=== PATIENT | male | born 1995 | race Caucasian/White ===

== ENCOUNTER 2016-10-16 21:37 | Emergency (ER) | payer MEDICAID, OTHER, SELFPAY ==
[2016-10-16] MEDS ORDERED: ONDANSETRON 4MG/2ML VIAL (J2405) As Ordered ONE (22:32)
[2016-10-16] MEDS ORDERED: KETOROLAC 30 MG/ML VIAL (J1885) As Ordered ONE (22:32)
[2016-10-16 22:55] LABS: MEAN CORPUSCULAR HEMOGLOBIN 31.8 pg (27.0-33.0); MEAN CORPUSCULAR HGB CONC 34.2 g/dl (32.0-36.5); MEAN CORPUSCULAR VOLUME 93.1 fl (80.0-96.0); PLATELET COUNT, AUTOMATED 249 k/mm3 (150-450); RED CELL DISTRIBUTION WIDTH 11.9 % (11.5-14.5); WHITE BLOOD COUNT 15.2 K/mm3 (4.0-10.0)
[2016-10-16 23:13] LABS: ALBUMIN 4.2 GM/DL (3.2-5.2); ALBUMIN/GLOBULIN RATIO 1.56 (1.00-1.93); ALKALINE PHOSPHATASE 80 U/L (45-117); ALT/SGPT 14 U/L (12-78); AMYLASE 72 U/L (25-115); ANION GAP 10 MEQ/L (8-16); AST/SGOT 9 U/L (15-37); BILIRUBIN,DIRECT 0.4 MG/DL (0.0-0.2); BILIRUBIN,TOTAL 1.4 MG/DL (0.2-1.0); BLOOD UREA NITROGEN 15 MG/DL (7-18); CALCIUM LEVEL 8.8 MG/DL (8.5-10.1); CARBON DIOXIDE LEVEL 27 MEQ/L (21-32); CHLORIDE LEVEL 107 MEQ/L (98-107); CREATININE FOR GFR 1.02 MG/DL (0.70-1.30); GLOMERULAR FILTRATION RATE > 60.0 (>60); GLUCOSE, FASTING 93 MG/DL (70-105); POTASSIUM SERUM 4.6 MEQ/L (3.5-5.1); SODIUM LEVEL 144 MEQ/L (136-145); TOTAL PROTEIN 6.9 GM/DL (6.4-8.2)
[2016-10-16 23:46] LABS: EOSINOPHILS 1 % (0-5)
[2016-10-16 23:52] LABS: AMPHETAMINES LEVEL URINE NEGATIVE (NEGATIVE)
[2016-10-16 23:53] LABS: BENZODIAZEPINES URINE NEGATIVE (NEGATIVE); COCAINE METABOLITE URINE NEGATIVE (NEGATIVE); CONTROL LINE INT CTR LINE PRESENT; METHADONE URINE NEGATIVE (NEGATIVE); OPIATES URINE NEGATIVE (NEGATIVE); TRICYCLIC ANTIDEPRESS URINE NEGATIVE (NEGATIVE)
[2016-10-17] MEDS ORDERED: IBUPROFEN 600 MG TAB As Ordered ONE (02:18)
--- NOTE | 2016-10-17 02:31 | EDDOCDS ---
Nurse's Notes [facility] Name: Prasanna Walls Age: 21 yrs Sex: Male : 1995 Arrival Date: 10/16/2016 Time: 21:37 Bed 14 Private MD: Diagnosis: Nausea and vomiting;Fever, unspecified Presentation: 10/16 21:40 Presenting complaint: EMS states: N/V/D starting at approx 20:00. pt was feeling weak mlc and unable to leave bathroom. Adult Sepsis Screening: The patient does not have new or worsening altered mentation. Patient's respiratory rate is less than 22. Systolic blood pressure is greater than 100. Patient has a qSOFA score of 0- Negative Sepsis Screen. Suicide/Homicide risk assessment- the patient denies having any suicidal and/or homicidal ideations and does not present with any other emotional, behavioral or mental health complaints. Status: Patient is not a service assistant or dependent. Transition of care: patient was not received from another setting of care. Care prior to arrival: Medications administered prior to arrival: 4 mg zofran IV initiated. 21:40 Acuity: JACKELINE Level 3 mlc 21:40 Method Of Arrival: Ambulance mlc Triage Assessment: 21:43 General: Appears ill, Behavior is cooperative. Pain: Location: headache, right lower mlc quad Pain currently is 3 out of 10 on a pain scale. HIV screening NA for this visit Offered previously. The patient is triaged at the bedside. See Assessment in Nurses Notes section of ED record. Neurological: Level of Consciousness is awake, alert, Oriented to person, place, time. Respiratory: Airway is patent Respiratory effort is even, unlabored, Respiratory pattern is regular. GI: Reports diarrhea, nausea, vomiting. Derm: Skin is pale. Historical: - Allergies: No known drug Allergies; - Home Meds: 1. none - PMHx: Anxiety; - PSHx: hypospadis at 1 1/2 years old; - Social history: Smoking status: Patient uses tobacco products, current every day smoker. No barriers to communication noted, The patient speaks fluent Mongolian. - Family history: Not pertinent, No immediate family members are acutely ill. - : The pt / caregiver states he / she is not on anticoagulants. Home medication list is obtained from the patient. - Exposure Risk Screening:: None identified. Screenin:44 Screening information is obtained from the patient. Fall risk: No risks identified. mlc Assistance ADL's: requires no assistance with activities of daily living. Abuse/DV Screen: The patient / caregiver reports he/she is: not in a situation that causes fear, pain or injury. Nutritional screening: No deficits noted. Advance Directives: Currently, there is no health care proxy. home support is adequate. Assessment: 22:30 General: Appears uncomfortable, Behavior is anxious, cooperative. Pain: Location: right js15 lower quadrant Pain currently is 9 out of 10 on a pain scale. Neurological: Level of Consciousness is awake, alert, obeys commands, Oriented to person, place, time. Respiratory: Airway is patent Respiratory effort is even, unlabored, Respiratory pattern is regular, symmetrical, Breath sounds are clear bilaterally. GI: Abdomen is non- distended Bowel sounds present X 4 quads. Abd is tender to palpation in right lower quadrant and left lower quadrant. Derm: Skin is pink, warm & dry. 23:30 Reassessment: Patient appears in no apparent distress at this time. Pt resting on js15 stretcher with family at bedside; respirations even and unlabored; skin pink, warm, dry. 10/17 00:30 Reassessment: Patient appears in no apparent distress at this time. Pt requesting oral js15 fluids; given small amount of water to sip on after approval from ED physician; respirations even and unlabored; skin pink, warm, dry. 01:21 General: Appears in no apparent distress, Behavior is appropriate for age, cooperative, js15 Reports fatigue for. Neurological: Level of Consciousness is awake, alert, obeys commands, Oriented to person, place, time. Respiratory: Airway is patent Respiratory effort is even, unlabored, Respiratory pattern is regular, symmetrical. Derm: Skin is dry, Skin is pink, Skin temperature is hot. 02:28 Reassessment: Patient appears in no apparent distress at this time. Patient states js15 feeling better. Patient states symptoms have improved. Pt resting on stretcher with family at bedside; respirations even and unlabored; skin pink, warm, dry. Vital Signs: 10/16 21:44 BP 122 / 72 RA Sitting (auto/reg); Pulse 88 MON; Resp 18 S; Temp 99.3(O); Pulse Ox 100% cln on R/A; Weight 61.23 kg (R); Height 5 ft. 11 in. (180.34 cm) (R); Pain 3/10; 10/17 01:14 BP 123 / 55 (auto/); js15 01:15 Pulse 94 MON; Pulse Ox 94% ; js15 01:17 Temp 101.7(TE); js15 02:14 BP 113 / 59 (auto/); js15 02:16 Pulse 90 MON; Resp 20; Temp 101.7(TE); Pulse Ox 95% on R/A; js15 10/16 21:44 Body Mass Index 18.83 (61.23 kg, 180.34 cm) cln Vitals: 10/16 21:43 Log In Time N/A - ambulance arrival. [facility] [place] ED Course: 21:38 Patient visited by La Arrington, Maintainer [employer]. ml3 21:38 Radha Thurston,GARRY is Primary Nurse. ml3 21:38 Patient moved to Waiting ml3 21:38 Patient moved to 14 ml3 21:43 Triage Initiated mlc 21:44 Patient visited by Pinky Wilkerson PCA. cln 21:45 Maintain field IV. Dressing intact. Gauge & site: 20g right AC. mlc 22:01 Elijah Christiansen DO is Attending Physician. mm11 22:01 Patient visited by Elijah Christiansen DO. mm11 22:18 Patient visited by Elijah Christiansen DO. mm11 22:44 Amylase Sent. js15 22:44 Basic Metabolic Profile Sent. js15 22:44 CBC with Diff Sent. js15 22:44 Lipase Sent. js15 22:44 Liver Profile Sent. js15 22:57 Drug Eval Toxicology ED Only Sent. cln 22:57 Urinalysis Sent. cln 22:57 Urine Culture Sent. cln 23:26 Patient name changed from Prasanna\S\R\S\Walls\S\ to Prasanna\S\Nicholas\S\Walls. EDMS 23:28 Patient visited by Lorena Tanner,GARRY. js15 23:28 DIFFERENTIAL NO CHARGE Sent. js15 23:40 [facility] Payment Agreement was scanned into [employer] and attached to record. pm4 10/17 00:00 The patient / caregiver is instructed regarding the plan of care and ED course. js15 00:37 Patient visited by Lorena Tanner RN. js15 00:54 Primary Nurse role handed off by Radha Thurston RN kailey 01:19 Patient visited by Elijah Christiansen DO. mm11 02:12 Referral List is Referral Physician. mm11 02:29 Discontinued IV lock intact, bleeding controlled, pressure dressing applied, No js15 redness/swelling at site. No procedures done that require assistance. Administered Medications: 10/16 22:44 Drug: NS 0.9% 1000 ml [sodium chloride 0.9 % intravenous solution] Route: IV; Rate: js15 bolus; Site: left antecubital; 10/17 00:30 Follow up: IV Status: Completed infusion; IV Intake: 1000ml 15 10/16 22:44 Drug: Ondansetron 4 mg [ondansetron HCl 2 mg/mL intravenous solution (2 mL)] Route: js15 IVP; Site: left antecubital; 22:44 Drug: ketorolac 30 mg [ketorolac 30 mg/mL (1 mL) injection solution (1 mL)] Route: IVP; 15 Site: left antecubital; 10/17 02:27 Drug: Ibuprofen 600 mg [ibuprofen 600 mg tablet (1 tabs)] Route: PO; 15 Intake: 00:30 IV: 1000.00ml; Total: 1000.00ml. 15 Order Results: Lab Order: Amylase; SPEC'M 10/16/16 22:41 Test: AMYLASE; Value: 72; Range: 25-115; Units: U/L; Status: F Lab Order: Basic Metabolic Profile; SPEC'M 10/16/16 22:41 Test: GLUCOSE, FASTING; Value: 93; Range: 70-105; Units: MG/DL; Status: F Test: BLOOD UREA NITROGEN; Value: 15; Range: 7-18; Units: MG/DL; Status: F Test: CREATININE FOR GFR; Value: 1.02; Range: 0.70-1.30; Units: MG/DL; Status: F Test: GLOMERULAR FILTRATION RATE; Value: > 60.0; Range: >60; Status: F Test: SODIUM LEVEL; Value: 144; Range: 136-145; Units: MEQ/L; Status: F Test: POTASSIUM SERUM; Value: 4.6; Range: 3.5-5.1; Units: MEQ/L; Status: F Test: CHLORIDE LEVEL; Value: 107; Range: 98-107; Units: MEQ/L; Status: F Test: CARBON DIOXIDE LEVEL; Value: 27; Range: 21-32; Units: MEQ/L; Status: F Test: ANION GAP; Value: 10; Range: 8-16; Units: MEQ/L; Status: F Test: CALCIUM LEVEL; Value: 8.8; Range: 8.5-10.1; Units: MG/DL; Status: F Test Note: ; Units are mL/min/1.73 m2 Chronic Kidney Disease Staging per NKF: Stage I & II GFR >=60 Normal to Mildly Decreased Stage III GFR 30-59 Moderately Decreased Stage IV GFR 15-29 Severely Decreased Stage V GFR <15 Very Little GFR Left ESRD GFR <15 on CEO NA Lab Order: CBC with Diff; SPEC'M 10/16/16 22:41 Test: WHITE BLOOD COUNT; Value: 15.2; Range: 4.0-10.0; Abnormal: Above high normal; Units: K/mm3; Status: F Test: RED BLOOD COUNT; Value: 5.50; Range: 4.30-6.10; Units: M/mm3; Status: F Test: HEMOGLOBIN; Value: 17.5; Range: 14.0-18.0; Units: g/dl; Status: F Test: HEMATOCRIT; Value: 51.2; Range: 42.0-52.0; Units: %; Status: F Test: MEAN CORPUSCULAR VOLUME; Value: 93.1; Range: 80.0-96.0; Units: fl; Status: F Test: MEAN CORPUSCULAR HEMOGLOBIN; Value: 31.8; Range: 27.0-33.0; Units: pg; Status: F Test: MEAN CORPUSCULAR HGB CONC; Value: 34.2; Range: 32.0-36.5; Units: g/dl; Status: F Test: RED CELL DISTRIBUTION WIDTH; Value: 11.9; Range: 11.5-14.5; Units: %; Status: F Test: PLATELET COUNT, AUTOMATED; Value: 249; Range: 150-450; Units: k/mm3; Status: F Test: NEUTROPHILS; Value: 90; Range: 35-75; Abnormal: Above high normal; Units: %; Status: F Test: LYMPHOCYTES; Value: 6; Range: 16-52; Abnormal: Below low normal; Units: %; Status: F Test: MONOCYTES; Value: 3; Range: 0-8; Units: %; Status: F Test: EOSINOPHILS; Value: 1; Range: 0-5; Units: %; Status: F Lab Order: Lipase; [facility] 10/16/16 22:41 Test: LIPASE; Value: 187; Range: 73-393; Units: U/L; Status: F Lab Order: Liver Profile; [facility] 10/16/16 22:41 Test: AST/SGOT; Value: 9; Range: 15-37; Abnormal: Below low normal; Units: U/L; Status: F Test: ALT/SGPT; Value: 14; Range: 12-78; Units: U/L; Status: F Test: ALKALINE PHOSPHATASE; Value: 80; Range: 45-117; Units: U/L; Status: F Test: BILIRUBIN,TOTAL; Value: 1.4; Range: 0.2-1.0; Abnormal: Above high normal; Units: MG/DL; Status: F Test: BILIRUBIN,DIRECT; Value: 0.4; Range: 0.0-0.2; Abnormal: Above high normal; Units: MG/DL; Status: F Test: TOTAL PROTEIN; Value: 6.9; Range: 6.4-8.2; Units: GM/DL; Status: F Test: ALBUMIN; Value: 4.2; Range: 3.2-5.2; Units: GM/DL; Status: F Test: ALBUMIN/GLOBULIN RATIO; Value: 1.56; Range: 1.00-1.93; Status: F Lab Order: Urinalysis; [facility] 10/16/16 23:16 Test: APPEARANCE, URINE; Value: HAZY; Range: CLEAR; Status: F Test: COLOR, URINE; Value: YELLOW; Range: YELLOW; Status: F Test: PH,URINE; Value: 5.0; Range: 5.0-9.0; Units: UNITS; Status: F Test: SPECIFIC GRAVITY URINE AUTO; Value: 1.021; Range: 1.002-1.035; Status: F Test: PROTEIN, URINE AUTO; Value: NEGATIVE; Range: NEGATIVE; Units: mg/dL; Status: F Test: GLUCOSE, URINE (UA) AUTO; Value: NEGATIVE; Range: NEGATIVE; Units: mg/dL; Status: F Test: KETONE, URINE AUTO; Value: TRACE; Range: NEGATIVE; Abnormal: Above high normal; Units: mg/dL; Status: F Test: UROBILINOGEN, URINE AUTO; Value: 0.2; Range: 0.0-2.0; Units: mg/dL; Status: F Test: BILIRUBIN, URINE AUTO; Value: NEGATIVE; Range: NEGATIVE; Status: F Test: NITRITE, URINE AUTO; Value: NEGATIVE; Range: NEGATIVE; Status: F Test: LEUKOCYTE ESTERASE, URINE AUTO; Value: NEGATIVE; Range: NEGATIVE; Status: F Test: BLOOD, URINE BLOOD; Value: NEGATIVE; Range: NEGATIVE; Status: F Test: WBC, URINE AUTO; Value: 3; Range: 0-3; Units: /HPF; Status: F Test: RBC, URINE AUTO; Value: 0; Range: 0-3; Units: /HPF; Status: F Test: BACTERIA, URINE AUTO; Value: NEGATIVE; Range: NEGATIVE; Status: F Test: SQUAMOUS EPITHELIAL CELL UR AU; Value: 0; Range: 0-6; Units: /HPF; Status: F Test: MUCUS, URINE; Value: MODERATE; Range: NEGATIVE; Status: F Test: HYALINE CAST, URINE AUTO; Value: 0; Range: 0-1; Units: /LPF; Status: F Lab Order: Drug Eval Toxicology ED Only; SPEC'M 10/16/16 23:16 Test: AMPHETAMINES LEVEL URINE; Value: NEGATIVE; Range: NEGATIVE; Status: F Test: BARBITURATES URINE; Value: NEGATIVE; Range: NEGATIVE; Status: F Test: BENZODIAZEPINES URINE; Value: NEGATIVE; Range: NEGATIVE; Status: F Test: CANNABINOIDS URINE; Value: NEGATIVE; Range: NEGATIVE; Status: F Test: COCAINE METABOLITE URINE; Value: NEGATIVE; Range: NEGATIVE; Status: F Test: METHADONE URINE; Value: NEGATIVE; Range: NEGATIVE; Status: F Test: OPIATES URINE; Value: NEGATIVE; Range: NEGATIVE; Status: F Test: TRICYCLIC ANTIDEPRESS URINE; Value: NEGATIVE; Range: NEGATIVE; Status: F Test Note: ; ALL PRESUMPTIVE POSITIVE FINDINGS ARE UNCONFIRMED NORMAL VALUES THRESHOLD IN NG/ML AMPHETAMINES 1000 METHAMPHETAMINES 1000 BARBITURATES 300 BENZODIAZEPINES 300 CANNABINOIDS (THC) 50 COCAINE METABOLITE 300 METHADONE 300 OPIATES 300 PHENCYCLIDINE 25 TRICYCLIC ANTIDEPRESSANTS 1000 RESULTS ARE FOR MEDICAL PURPOSES ONLY. ALL URINE SPECIMENS WILL BE SAVED FOR 3 DAYS. IF CONFIRMATION OF A PRESUMPTIVE POSTIVE SCREEN RESULT IS DESIRED, CALL CHEMISTRY ([phone]) AND REQUEST URINE TO BE SENT TO REFERENCE LAB. FOR A LIST OF CLOSELY RELATED COMPOUNDS PLEASE CALL THE LAB. Lab Order: PLATELET ESTIMATE; SPEC'M 10/16/16 22:41 Test: PLATELET ESTIMATE; Value: NORMAL; Range: NORMAL; Status: F Outcome: 02:12 Discharge ordered by Provider. mm11 02:29 Discharge Assessment: Patient awake, alert and oriented x 3. No cognitive and/or js15 functional deficits noted. Patient verbalized understanding of disposition instructions. patient administered narcotics - no. The following High Risk Discharge criteria are identified: None. Discharged to home ambulatory, with family, with significant other. Condition: improved. Discharge instructions given to patient, Instructed on discharge instructions, follow up and referral plans. medication usage, diet, Demonstrated understanding of instructions, medications, Pt was receptive of discharge instructions/ teaching. Prescriptions given X 1. No special radiology studies were completed. Property sent home with patient. 02:30 Patient left the ED. js15 Signatures: Dispatcher [employer] EDMS La Arrington, Maintainer [employer] ml3 Elijah Christiansen, DO mm11 Es Guzman, REMOTE SENSING ADVISOR REMOTE SENSING ADVISOR Cha Corey,RN RN Lorena Harmon RN RN js15 Pinky Wilkerson, REMOTE SENSING ADVISOR REMOTE SENSING ADVISOR suzannen Soham Morocho, Reg Reg pm4 MTDD
--- NOTE | 2016-10-17 02:31 | EDDOCDS ---
Physician Documentation [facility] Name: Prasanna Walls Age: 21 yrs Sex: Male : 1995 Arrival Date: 10/16/2016 Time: 21:37 Bed 14 Private MD: Disposition: 10/17/16 02:12 Discharged to Home/Self Care. Impression: Nausea and vomiting, Fever, unspecified. - Condition is Stable. - Discharge Instructions: Abdominal Pain, Adult, Fever, Adult, Nausea and Vomiting, Viral Gastroenteritis. - Prescriptions for Zofran 4 mg Oral Tablet - take 1 tablet by ORAL route 4 times per day As needed; 10 tablet. - Medication Reconciliation, Local Pharmacy Hours, Family Work Release, Work Release Form - 1 day, Referral List Call for Appointment form. - Follow up: Referral List; When: Call to arrange an appointment; Reason: Continuance of care. - Problem is an acute exacerbation. - Symptoms have improved. Historical: - Allergies: No known drug Allergies; - Home Meds: 1. none - PMHx: Anxiety; - PSHx: hypospadis at 1 1/2 years old; - Social history: Smoking status: Patient uses tobacco products, current every day smoker. No barriers to communication noted, The patient speaks fluent Guyanese. - Family history: Not pertinent, No immediate family members are acutely ill. - : The pt / caregiver states he / she is not on anticoagulants. Home medication list is obtained from the patient. - Exposure Risk Screening:: None identified. Vital Signs: 10/16 21:44 BP 122 / 72 RA Sitting (auto/reg); Pulse 88 MON; Resp 18 S; Temp 99.3(O); Pulse Ox 100% cln on R/A; Weight 61.23 kg / 134.99 lbs (R); Height 5 ft. 11 in. (180.34 cm) (R); Pain 3/10; 10/17 01:14 BP 123 / 55 (auto/); 01:15 Pulse 94 MON; Pulse Ox 94% ; 01:17 Temp 101.7(TE); 02:14 BP 113 / 59 (auto/); 02:16 Pulse 90 MON; Resp 20; Temp 101.7(TE); Pulse Ox 95% on R/A; 10/16 21:44 Body Mass Index 18.83 (61.23 kg, 180.34 cm) cln MDM: 10/16 22:19 NS 0.9% 1000 ml IV at bolus once ordered. mm11 22:19 Ondansetron 4 mg IVP once ordered. mm11 22:19 ketorolac 30 mg IVP once ordered. mm11 22:19 IV Saline Lock ordered. mm11 22:19 Undress patient appropriately for examination ordered. mm11 22:21 Amylase Ordered. EDMS 22:21 Basic Metabolic Profile Ordered. EDMS 22:21 CBC with Diff Ordered. EDMS 22:21 Lipase Ordered. EDMS 22:21 Liver Profile Ordered. EDMS 22:21 Urinalysis Ordered. EDMS 22:21 Urine Culture Ordered. EDMS 22:21 Drug Eval Toxicology ED Only Ordered. EDMS 22:21 NOTHING BY MOUTH+DIET ordered. EDMS 22:57 DIFFERENTIAL NO CHARGE Ordered. EDMS 22:57 PLATELET ESTIMATE Ordered. EDMS 23:18 Financial registration complete. pm4 23:40 [facility] Payment Agreement was scanned into [employer] and attached to record. pm4 23:51 CBC with Diff Reviewed. mm11 23:51 Liver Profile Reviewed. mm11 23:51 Amylase Reviewed. mm11 23:51 Basic Metabolic Profile Reviewed. mm11 23:51 Lipase Reviewed. mm11 23:51 PLATELET ESTIMATE Reviewed. mm11 10/17 00:40 Urinalysis Reviewed. mm11 00:40 Drug Eval Toxicology ED Only Reviewed. mm11 02:18 Ibuprofen 600 mg PO once ordered. mm11 Administered Medications: 10/16 22:44 Drug: NS 0.9% 1000 ml [sodium chloride 0.9 % intravenous solution] Route: IV; Rate: js15 bolus; Site: left antecubital; 10/17 00:30 Follow up: IV Status: Completed infusion; IV Intake: 1000ml 15 10/16 22:44 Drug: Ondansetron 4 mg [ondansetron HCl 2 mg/mL intravenous solution (2 mL)] Route: js15 IVP; Site: left antecubital; 22:44 Drug: ketorolac 30 mg [ketorolac 30 mg/mL (1 mL) injection solution (1 mL)] Route: IVP; js15 Site: left antecubital; 10/17 02:27 Drug: Ibuprofen 600 mg [ibuprofen 600 mg tablet (1 tabs)] Route: PO; js15 Signatures: Dispatcher [employer] Elijah Abbott, DO mm11 Cha GloriaRN RN mlc Lorena Tanner RN RN js15 Soham Morocho, Reg Reg pm4 The chart was reviewed and I authenticate all verbal orders and agree with the evaluation and treatment provided.Attachments: 10/16 23:40 [facility] Payment Agreement pm4 MTDD
[2016-10-18] MEDS ORDERED: METAL LOCK LOOP XX ONE (11:15)
--- NOTE | 2016-10-19 03:31 | EDDOCDS ---
Nurse's Notes [facility] Name: Prasanna Walls Age: 21 yrs Sex: Male : 1995 Arrival Date: 10/16/2016 Time: 21:37 Bed 14 Private MD: Diagnosis: Nausea and vomiting;Fever, unspecified Presentation: 10/16 21:40 Presenting complaint: EMS states: N/V/D starting at approx 20:00. pt was feeling weak mlc and unable to leave bathroom. Adult Sepsis Screening: The patient does not have new or worsening altered mentation. Patient's respiratory rate is less than 22. Systolic blood pressure is greater than 100. Patient has a qSOFA score of 0- Negative Sepsis Screen. Suicide/Homicide risk assessment- the patient denies having any suicidal and/or homicidal ideations and does not present with any other emotional, behavioral or mental health complaints. Status: Patient is not a managed services consultant or dependent. Transition of care: patient was not received from another setting of care. Care prior to arrival: Medications administered prior to arrival: 4 mg zofran IV initiated. 21:40 Acuity: JACKELINE Level 3 mlc 21:40 Method Of Arrival: Ambulance mlc Triage Assessment: 21:43 General: Appears ill, Behavior is cooperative. Pain: Location: headache, right lower mlc quad Pain currently is 3 out of 10 on a pain scale. HIV screening NA for this visit Offered previously. The patient is triaged at the bedside. See Assessment in Nurses Notes section of ED record. Neurological: Level of Consciousness is awake, alert, Oriented to person, place, time. Respiratory: Airway is patent Respiratory effort is even, unlabored, Respiratory pattern is regular. GI: Reports diarrhea, nausea, vomiting. Derm: Skin is pale. Historical: - Allergies: No known drug Allergies; - Home Meds: 1. none - PMHx: Anxiety; - PSHx: hypospadis at 1 1/2 years old; - Social history: Smoking status: Patient uses tobacco products, current every day smoker. No barriers to communication noted, The patient speaks fluent Danish. - Family history: Not pertinent, No immediate family members are acutely ill. - : The pt / caregiver states he / she is not on anticoagulants. Home medication list is obtained from the patient. - Exposure Risk Screening:: None identified. Screenin:44 Screening information is obtained from the patient. Fall risk: No risks identified. mlc Assistance ADL's: requires no assistance with activities of daily living. Abuse/DV Screen: The patient / caregiver reports he/she is: not in a situation that causes fear, pain or injury. Nutritional screening: No deficits noted. Advance Directives: Currently, there is no health care proxy. home support is adequate. Assessment: 22:30 General: Appears uncomfortable, Behavior is anxious, cooperative. Pain: Location: right js15 lower quadrant Pain currently is 9 out of 10 on a pain scale. Neurological: Level of Consciousness is awake, alert, obeys commands, Oriented to person, place, time. Respiratory: Airway is patent Respiratory effort is even, unlabored, Respiratory pattern is regular, symmetrical, Breath sounds are clear bilaterally. GI: Abdomen is non- distended Bowel sounds present X 4 quads. Abd is tender to palpation in right lower quadrant and left lower quadrant. Derm: Skin is pink, warm & dry. 23:30 Reassessment: Patient appears in no apparent distress at this time. Pt resting on js15 stretcher with family at bedside; respirations even and unlabored; skin pink, warm, dry. 10/17 00:30 Reassessment: Patient appears in no apparent distress at this time. Pt requesting oral js15 fluids; given small amount of water to sip on after approval from ED physician; respirations even and unlabored; skin pink, warm, dry. 01:21 General: Appears in no apparent distress, Behavior is appropriate for age, cooperative, js15 Reports fatigue for. Neurological: Level of Consciousness is awake, alert, obeys commands, Oriented to person, place, time. Respiratory: Airway is patent Respiratory effort is even, unlabored, Respiratory pattern is regular, symmetrical. Derm: Skin is dry, Skin is pink, Skin temperature is hot. 02:28 Reassessment: Patient appears in no apparent distress at this time. Patient states js15 feeling better. Patient states symptoms have improved. Pt resting on stretcher with family at bedside; respirations even and unlabored; skin pink, warm, dry. Vital Signs: 10/16 21:44 BP 122 / 72 RA Sitting (auto/reg); Pulse 88 MON; Resp 18 S; Temp 99.3(O); Pulse Ox 100% cln on R/A; Weight 61.23 kg (R); Height 5 ft. 11 in. (180.34 cm) (R); Pain 3/10; 10/17 01:14 BP 123 / 55 (auto/); js15 01:15 Pulse 94 MON; Pulse Ox 94% ; js15 01:17 Temp 101.7(TE); js15 02:14 BP 113 / 59 (auto/); js15 02:16 Pulse 90 MON; Resp 20; Temp 101.7(TE); Pulse Ox 95% on R/A; js15 10/16 21:44 Body Mass Index 18.83 (61.23 kg, 180.34 cm) cln Vitals: 10/16 21:43 Log In Time N/A - ambulance arrival. [facility] [place] Course: 21:38 Patient visited by La Arrington, [employer] Professional. ml3 21:38 Radha Thurston,GARRY is Primary Nurse. ml3 21:38 Patient moved to Waiting ml3 21:38 Patient moved to 14 ml3 21:43 Triage Initiated mlc 21:44 Patient visited by Pinky Wilkerson PCA. cln 21:45 Maintain field IV. Dressing intact. Gauge & site: 20g right AC. mlc 22:01 Elijah Christiansen DO is Attending Physician. mm11 22:01 Patient visited by Elijah Christiansen DO. mm11 22:18 Patient visited by Elijah Christiansen DO. mm11 22:44 Amylase Sent. js15 22:44 Basic Metabolic Profile Sent. js15 22:44 CBC with Diff Sent. js15 22:44 Lipase Sent. js15 22:44 Liver Profile Sent. js15 22:57 Drug Eval Toxicology ED Only Sent. cln 22:57 Urinalysis Sent. cln 22:57 Urine Culture Sent. cln 23:26 Patient name changed from Prasanna\S\R\S\Walls\S\ to Prasanna\S\Nicholas\S\Walls. EDMS 23:28 Patient visited by Lorena Tanner,GARRY. js15 23:28 DIFFERENTIAL NO CHARGE Sent. js15 23:40 [facility] Payment Agreement was scanned into [email or web address] and attached to record. pm4 10/17 00:00 The patient / caregiver is instructed regarding the plan of care and ED course. js15 00:37 Patient visited by Lorena Tanner RN. js15 00:54 Primary Nurse role handed off by Radha Thurston RN kailey 01:19 Patient visited by Elijah Christiansen DO. mm11 02:12 Referral List is Referral Physician. mm11 02:29 Discontinued IV lock intact, bleeding controlled, pressure dressing applied, No js15 redness/swelling at site. No procedures done that require assistance. 08:56 T-Sheet-- Draft Copy was scanned into [email or web address] and attached to record. jp5 10/18 10:53 PCR was scanned into [email or web address] and attached to record. gb Administered Medications: 10/16 22:44 Drug: NS 0.9% 1000 ml [sodium chloride 0.9 % intravenous solution] Route: IV; Rate: js15 bolus; Site: left antecubital; 10/17 00:30 Follow up: IV Status: Completed infusion; IV Intake: 1000ml js15 10/16 22:44 Drug: Ondansetron 4 mg [ondansetron HCl 2 mg/mL intravenous solution (2 mL)] Route: js15 IVP; Site: left antecubital; 22:44 Drug: ketorolac 30 mg [ketorolac 30 mg/mL (1 mL) injection solution (1 mL)] Route: IVP; js15 Site: left antecubital; 10/17 02:27 Drug: Ibuprofen 600 mg [ibuprofen 600 mg tablet (1 tabs)] Route: PO; js15 Intake: 00:30 IV: 1000.00ml; Total: 1000.00ml. js15 Order Results: Lab Order: Amylase; SPEC'M 10/16/16 22:41 Test: AMYLASE; Value: 72; Range: 25-115; Units: U/L; Status: F Lab Order: Basic Metabolic Profile; SPEC'M 10/16/16 22:41 Test: GLUCOSE, FASTING; Value: 93; Range: 70-105; Units: MG/DL; Status: F Test: BLOOD UREA NITROGEN; Value: 15; Range: 7-18; Units: MG/DL; Status: F Test: CREATININE FOR GFR; Value: 1.02; Range: 0.70-1.30; Units: MG/DL; Status: F Test: GLOMERULAR FILTRATION RATE; Value: > 60.0; Range: >60; Status: F Test: SODIUM LEVEL; Value: 144; Range: 136-145; Units: MEQ/L; Status: F Test: POTASSIUM SERUM; Value: 4.6; Range: 3.5-5.1; Units: MEQ/L; Status: F Test: CHLORIDE LEVEL; Value: 107; Range: 98-107; Units: MEQ/L; Status: F Test: CARBON DIOXIDE LEVEL; Value: 27; Range: 21-32; Units: MEQ/L; Status: F Test: ANION GAP; Value: 10; Range: 8-16; Units: MEQ/L; Status: F Test: CALCIUM LEVEL; Value: 8.8; Range: 8.5-10.1; Units: MG/DL; Status: F Test Note: ; Units are mL/min/1.73 m2 Chronic Kidney Disease Staging per NKF: Stage I & II GFR >=60 Normal to Mildly Decreased Stage III GFR 30-59 Moderately Decreased Stage IV GFR 15-29 Severely Decreased Stage V GFR <15 Very Little GFR Left ESRD GFR <15 on [employer]ERK Lab Order: CBC with Diff; SPEC'M 10/16/16 22:41 Test: WHITE BLOOD COUNT; Value: 15.2; Range: 4.0-10.0; Abnormal: Above high normal; Units: K/mm3; Status: F Test: RED BLOOD COUNT; Value: 5.50; Range: 4.30-6.10; Units: M/mm3; Status: F Test: HEMOGLOBIN; Value: 17.5; Range: 14.0-18.0; Units: g/dl; Status: F Test: HEMATOCRIT; Value: 51.2; Range: 42.0-52.0; Units: %; Status: F Test: MEAN CORPUSCULAR VOLUME; Value: 93.1; Range: 80.0-96.0; Units: fl; Status: F Test: MEAN CORPUSCULAR HEMOGLOBIN; Value: 31.8; Range: 27.0-33.0; Units: pg; Status: F Test: MEAN CORPUSCULAR HGB CONC; Value: 34.2; Range: 32.0-36.5; Units: g/dl; Status: F Test: RED CELL DISTRIBUTION WIDTH; Value: 11.9; Range: 11.5-14.5; Units: %; Status: F Test: PLATELET COUNT, AUTOMATED; Value: 249; Range: 150-450; Units: k/mm3; Status: F Test: NEUTROPHILS; Value: 90; Range: 35-75; Abnormal: Above high normal; Units: %; Status: F Test: LYMPHOCYTES; Value: 6; Range: 16-52; Abnormal: Below low normal; Units: %; Status: F Test: MONOCYTES; Value: 3; Range: 0-8; Units: %; Status: F Test: EOSINOPHILS; Value: 1; Range: 0-5; Units: %; Status: F Lab Order: Lipase; [facility] 10/16/16 22:41 Test: LIPASE; Value: 187; Range: 73-393; Units: U/L; Status: F Lab Order: Liver Profile; [facility] 10/16/16 22:41 Test: AST/SGOT; Value: 9; Range: 15-37; Abnormal: Below low normal; Units: U/L; Status: F Test: ALT/SGPT; Value: 14; Range: 12-78; Units: U/L; Status: F Test: ALKALINE PHOSPHATASE; Value: 80; Range: 45-117; Units: U/L; Status: F Test: BILIRUBIN,TOTAL; Value: 1.4; Range: 0.2-1.0; Abnormal: Above high normal; Units: MG/DL; Status: F Test: BILIRUBIN,DIRECT; Value: 0.4; Range: 0.0-0.2; Abnormal: Above high normal; Units: MG/DL; Status: F Test: TOTAL PROTEIN; Value: 6.9; Range: 6.4-8.2; Units: GM/DL; Status: F Test: ALBUMIN; Value: 4.2; Range: 3.2-5.2; Units: GM/DL; Status: F Test: ALBUMIN/GLOBULIN RATIO; Value: 1.56; Range: 1.00-1.93; Status: F Lab Order: Urinalysis; [facility] 10/16/16 23:16 Test: APPEARANCE, URINE; Value: HAZY; Range: CLEAR; Status: F Test: COLOR, URINE; Value: YELLOW; Range: YELLOW; Status: F Test: PH,URINE; Value: 5.0; Range: 5.0-9.0; Units: UNITS; Status: F Test: SPECIFIC GRAVITY URINE AUTO; Value: 1.021; Range: 1.002-1.035; Status: F Test: PROTEIN, URINE AUTO; Value: NEGATIVE; Range: NEGATIVE; Units: mg/dL; Status: F Test: GLUCOSE, URINE (UA) AUTO; Value: NEGATIVE; Range: NEGATIVE; Units: mg/dL; Status: F Test: KETONE, URINE AUTO; Value: TRACE; Range: NEGATIVE; Abnormal: Above high normal; Units: mg/dL; Status: F Test: UROBILINOGEN, URINE AUTO; Value: 0.2; Range: 0.0-2.0; Units: mg/dL; Status: F Test: BILIRUBIN, URINE AUTO; Value: NEGATIVE; Range: NEGATIVE; Status: F Test: NITRITE, URINE AUTO; Value: NEGATIVE; Range: NEGATIVE; Status: F Test: LEUKOCYTE ESTERASE, URINE AUTO; Value: NEGATIVE; Range: NEGATIVE; Status: F Test: BLOOD, URINE BLOOD; Value: NEGATIVE; Range: NEGATIVE; Status: F Test: WBC, URINE AUTO; Value: 3; Range: 0-3; Units: /HPF; Status: F Test: RBC, URINE AUTO; Value: 0; Range: 0-3; Units: /HPF; Status: F Test: BACTERIA, URINE AUTO; Value: NEGATIVE; Range: NEGATIVE; Status: F Test: SQUAMOUS EPITHELIAL CELL UR AU; Value: 0; Range: 0-6; Units: /HPF; Status: F Test: MUCUS, URINE; Value: MODERATE; Range: NEGATIVE; Status: F Test: HYALINE CAST, URINE AUTO; Value: 0; Range: 0-1; Units: /LPF; Status: F Lab Order: Urine Culture; SPEC'M 10/16/16 23:16 Test: URINE CULTURE; Value: <EXTERNAL COMMENT eCWMed> FULL REPORT IN LAB NOTES (eCW and Medent).; Status: F Test: URINE CULTURE; Value: URINE CULTURE RESULT NO GROWTH; Status: F Lab Order: Drug Eval Toxicology ED Only; SPEC'M 10/16/16 23:16 Test: AMPHETAMINES LEVEL URINE; Value: NEGATIVE; Range: NEGATIVE; Status: F Test: BARBITURATES URINE; Value: NEGATIVE; Range: NEGATIVE; Status: F Test: BENZODIAZEPINES URINE; Value: NEGATIVE; Range: NEGATIVE; Status: F Test: CANNABINOIDS URINE; Value: NEGATIVE; Range: NEGATIVE; Status: F Test: COCAINE METABOLITE URINE; Value: NEGATIVE; Range: NEGATIVE; Status: F Test: METHADONE URINE; Value: NEGATIVE; Range: NEGATIVE; Status: F Test: OPIATES URINE; Value: NEGATIVE; Range: NEGATIVE; Status: F Test: TRICYCLIC ANTIDEPRESS URINE; Value: NEGATIVE; Range: NEGATIVE; Status: F Test Note: ; ALL PRESUMPTIVE POSITIVE FINDINGS ARE UNCONFIRMED NORMAL VALUES THRESHOLD IN NG/ML AMPHETAMINES 1000 METHAMPHETAMINES 1000 BARBITURATES 300 BENZODIAZEPINES 300 CANNABINOIDS (THC) 50 COCAINE METABOLITE 300 METHADONE 300 OPIATES 300 PHENCYCLIDINE 25 TRICYCLIC ANTIDEPRESSANTS 1000 RESULTS ARE FOR MEDICAL PURPOSES ONLY. ALL URINE SPECIMENS WILL BE SAVED FOR 3 DAYS. IF CONFIRMATION OF A PRESUMPTIVE POSTIVE SCREEN RESULT IS DESIRED, CALL CHEMISTRY ([phone]) AND REQUEST URINE TO BE SENT TO REFERENCE LAB. FOR A LIST OF CLOSELY RELATED COMPOUNDS PLEASE CALL THE LAB. Lab Order: PLATELET ESTIMATE; SPEC'M 10/16/16 22:41 Test: PLATELET ESTIMATE; Value: NORMAL; Range: NORMAL; Status: F Outcome: 02:12 Discharge ordered by Provider. mm11 02:29 Discharge Assessment: Patient awake, alert and oriented x 3. No cognitive and/or js15 functional deficits noted. Patient verbalized understanding of disposition instructions. patient administered narcotics - no. The following High Risk Discharge criteria are identified: None. Discharged to home ambulatory, with family, with significant other. Condition: improved. Discharge instructions given to patient, Instructed on discharge instructions, follow up and referral plans. medication usage, diet, Demonstrated understanding of instructions, medications, Pt was receptive of discharge instructions/ teaching. Prescriptions given X 1. No special radiology studies were completed. Property sent home with patient. 02:30 Patient left the ED. js15 Signatures: Dispatcher [employer] EDMS Shiloh Ruiz, Reg Reg gb La Arrington, [employer] Professional Unit ml3 Elijah Christiansen DO DO mm11 Es Guzman, SENIOR CLINICAL RESEARCH ASSOCIATE SENIOR CLINICAL RESEARCH ASSOCIATE Cha Corey,RN RN Lorena Harmon RN RN js15 Loren Gonzalez jp5 Pinky Wilkerson, SENIOR CLINICAL RESEARCH ASSOCIATE SENIOR CLINICAL RESEARCH ASSOCIATE suzannen Soham Morocho, Reg Reg pm4 Chart Complete MTDD
--- NOTE | 2016-10-19 03:31 | EDDOCDS ---
Physician Documentation [facility] Name: Prasanna Walls Age: 21 yrs Sex: Male : 1995 Arrival Date: 10/16/2016 Time: 21:37 Bed 14 Private MD: Disposition: 10/17/16 02:12 Discharged to Home/Self Care. Impression: Nausea and vomiting, Fever, unspecified. - Condition is Stable. - Discharge Instructions: Abdominal Pain, Adult, Fever, Adult, Nausea and Vomiting, Viral Gastroenteritis. - Prescriptions for Zofran 4 mg Oral Tablet - take 1 tablet by ORAL route 4 times per day As needed; 10 tablet. - Medication Reconciliation, Local Pharmacy Hours, Family Work Release, Work Release Form - 1 day, Referral List Call for Appointment form. - Follow up: Referral List; When: Call to arrange an appointment; Reason: Continuance of care. - Problem is an acute exacerbation. - Symptoms have improved. Historical: - Allergies: No known drug Allergies; - Home Meds: 1. none - PMHx: Anxiety; - PSHx: hypospadis at 1 1/2 years old; - Social history: Smoking status: Patient uses tobacco products, current every day smoker. No barriers to communication noted, The patient speaks fluent Ukrainian. - Family history: Not pertinent, No immediate family members are acutely ill. - : The pt / caregiver states he / she is not on anticoagulants. Home medication list is obtained from the patient. - Exposure Risk Screening:: None identified. Vital Signs: 10/16 21:44 BP 122 / 72 RA Sitting (auto/reg); Pulse 88 MON; Resp 18 S; Temp 99.3(O); Pulse Ox 100% cln on R/A; Weight 61.23 kg / 134.99 lbs (R); Height 5 ft. 11 in. (180.34 cm) (R); Pain 3/10; 10/17 01:14 BP 123 / 55 (auto/); 01:15 Pulse 94 MON; Pulse Ox 94% ; 01:17 Temp 101.7(TE); 02:14 BP 113 / 59 (auto/); 02:16 Pulse 90 MON; Resp 20; Temp 101.7(TE); Pulse Ox 95% on R/A; 10/16 21:44 Body Mass Index 18.83 (61.23 kg, 180.34 cm) cln MDM: 10/16 22:19 NS 0.9% 1000 ml IV at bolus once ordered. mm11 22:19 Ondansetron 4 mg IVP once ordered. mm11 22:19 ketorolac 30 mg IVP once ordered. mm11 22:19 IV Saline Lock ordered. mm11 22:19 Undress patient appropriately for examination ordered. mm11 22:21 Amylase Ordered. EDMS 22:21 Basic Metabolic Profile Ordered. EDMS 22:21 CBC with Diff Ordered. EDMS 22:21 Lipase Ordered. EDMS 22:21 Liver Profile Ordered. EDMS 22:21 Urinalysis Ordered. EDMS 22:21 Urine Culture Ordered. EDMS 22:21 Drug Eval Toxicology ED Only Ordered. EDMS 22:21 NOTHING BY MOUTH+DIET ordered. EDMS 22:57 DIFFERENTIAL NO CHARGE Ordered. EDMS 22:57 PLATELET ESTIMATE Ordered. EDMS 23:18 Financial registration complete. pm4 23:40 [facility] Payment Agreement was scanned into [employer] and attached to record. pm4 23:51 CBC with Diff Reviewed. mm11 23:51 Liver Profile Reviewed. mm11 23:51 Amylase Reviewed. mm11 23:51 Basic Metabolic Profile Reviewed. mm11 23:51 Lipase Reviewed. mm11 23:51 PLATELET ESTIMATE Reviewed. mm11 10/17 00:40 Urinalysis Reviewed. mm11 00:40 Drug Eval Toxicology ED Only Reviewed. mm11 02:18 Ibuprofen 600 mg PO once ordered. mm11 08:56 T-Sheet-- Draft Copy was scanned into [employer] and attached to record. 5 10/18 10:53 PCR was scanned into [employer] and attached to record. gb Administered Medications: 10/16 22:44 Drug: NS 0.9% 1000 ml [sodium chloride 0.9 % intravenous solution] Route: IV; Rate: js15 bolus; Site: left antecubital; 10/17 00:30 Follow up: IV Status: Completed infusion; IV Intake: 1000ml js15 10/16 22:44 Drug: Ondansetron 4 mg [ondansetron HCl 2 mg/mL intravenous solution (2 mL)] Route: js15 IVP; Site: left antecubital; 22:44 Drug: ketorolac 30 mg [ketorolac 30 mg/mL (1 mL) injection solution (1 mL)] Route: IVP; js15 Site: left antecubital; 10/17 02:27 Drug: Ibuprofen 600 mg [ibuprofen 600 mg tablet (1 tabs)] Route: PO; js15 Signatures: Dispatcher [employer] EDMS Shiloh Ruiz, Reg Reg gb Elijah Christiansen, DO mm11 Cha Gloria,RN RN mlc Lorena Tanner RN RN js15 Loren Gonzalez jp5 Soham Morocho, Reg Reg pm4 The chart was reviewed and I authenticate all verbal orders and agree with the evaluation and treatment provided.Attachments: 10/16 23:40 [facility] [place] pm4 10/17 08:56 T-Sheet-- Draft Copy jp5 Chart Complete MTDD
--- NOTE | 2016-10-19 03:31 | EDDOCDS ---
Physician Documentation [facility] Name: Prasanna Walls Age: 21 yrs Sex: Male : 1995 Arrival Date: 10/16/2016 Time: 21:37 Bed 14 Private MD: Disposition: 10/17/16 02:12 Discharged to Home/Self Care. Impression: Nausea and vomiting, Fever, unspecified. - Condition is Stable. - Discharge Instructions: Abdominal Pain, Adult, Fever, Adult, Nausea and Vomiting, Viral Gastroenteritis. - Prescriptions for Zofran 4 mg Oral Tablet - take 1 tablet by ORAL route 4 times per day As needed; 10 tablet. - Medication Reconciliation, Local Pharmacy Hours, Family Work Release, Work Release Form - 1 day, Referral List Call for Appointment form. - Follow up: Referral List; When: Call to arrange an appointment; Reason: Continuance of care. - Problem is an acute exacerbation. - Symptoms have improved. Historical: - Allergies: No known drug Allergies; - Home Meds: 1. none - PMHx: Anxiety; - PSHx: hypospadis at 1 1/2 years old; - Social history: Smoking status: Patient uses tobacco products, current every day smoker. No barriers to communication noted, The patient speaks fluent Iraqi. - Family history: Not pertinent, No immediate family members are acutely ill. - : The pt / caregiver states he / she is not on anticoagulants. Home medication list is obtained from the patient. - Exposure Risk Screening:: None identified. Vital Signs: 10/16 21:44 BP 122 / 72 RA Sitting (auto/reg); Pulse 88 MON; Resp 18 S; Temp 99.3(O); Pulse Ox 100% cln on R/A; Weight 61.23 kg / 134.99 lbs (R); Height 5 ft. 11 in. (180.34 cm) (R); Pain 3/10; 10/17 01:14 BP 123 / 55 (auto/); 01:15 Pulse 94 MON; Pulse Ox 94% ; 01:17 Temp 101.7(TE); 02:14 BP 113 / 59 (auto/); 02:16 Pulse 90 MON; Resp 20; Temp 101.7(TE); Pulse Ox 95% on R/A; 10/16 21:44 Body Mass Index 18.83 (61.23 kg, 180.34 cm) cln MDM: 10/16 22:19 NS 0.9% 1000 ml IV at bolus once ordered. mm11 22:19 Ondansetron 4 mg IVP once ordered. mm11 22:19 ketorolac 30 mg IVP once ordered. mm11 22:19 IV Saline Lock ordered. mm11 22:19 Undress patient appropriately for examination ordered. mm11 22:21 Amylase Ordered. EDMS 22:21 Basic Metabolic Profile Ordered. EDMS 22:21 CBC with Diff Ordered. EDMS 22:21 Lipase Ordered. EDMS 22:21 Liver Profile Ordered. EDMS 22:21 Urinalysis Ordered. EDMS 22:21 Urine Culture Ordered. EDMS 22:21 Drug Eval Toxicology ED Only Ordered. EDMS 22:21 NOTHING BY MOUTH+DIET ordered. EDMS 22:57 DIFFERENTIAL NO CHARGE Ordered. EDMS 22:57 PLATELET ESTIMATE Ordered. EDMS 23:18 Financial registration complete. pm4 23:40 [facility] Payment Agreement was scanned into Sp[employer] and attached to record. pm4 23:51 CBC with Diff Reviewed. mm11 23:51 Liver Profile Reviewed. mm11 23:51 Amylase Reviewed. mm11 23:51 Basic Metabolic Profile Reviewed. mm11 23:51 Lipase Reviewed. mm11 23:51 PLATELET ESTIMATE Reviewed. mm11 10/17 00:40 Urinalysis Reviewed. mm11 00:40 Drug Eval Toxicology ED Only Reviewed. mm11 02:18 Ibuprofen 600 mg PO once ordered. mm11 08:56 T-Sheet-- Draft Copy was scanned into Spool and attached to record. 5 10/18 10:53 PCR was scanned into Spool and attached to record. gb Administered Medications: 10/16 22:44 Drug: NS 0.9% 1000 ml [sodium chloride 0.9 % intravenous solution] Route: IV; Rate: js15 bolus; Site: left antecubital; 10/17 00:30 Follow up: IV Status: Completed infusion; IV Intake: 1000ml js15 10/16 22:44 Drug: Ondansetron 4 mg [ondansetron HCl 2 mg/mL intravenous solution (2 mL)] Route: js15 IVP; Site: left antecubital; 22:44 Drug: ketorolac 30 mg [ketorolac 30 mg/mL (1 mL) injection solution (1 mL)] Route: IVP; js15 Site: left antecubital; 10/17 02:27 Drug: Ibuprofen 600 mg [ibuprofen 600 mg tablet (1 tabs)] Route: PO; js15 Signatures: Dispatcher [employer] EDMS Shiloh Ruiz, Reg Reg gb Elijah Christiansen, DO mm11 Cha Gloria,RN RN mlc Lorena Tanner RN RN js15 Loren Gonzalez jp5 Soham Morocho, Reg Reg pm4 The chart was reviewed and I authenticate all verbal orders and agree with the evaluation and treatment provided.Attachments: 10/16 23:40 [facility] Payment Agreement pm4 10/17 08:56 T-Sheet-- Draft Copy jp5 Chart Complete MTDD
== END 2016-10-17 02:30 | disposition home or self-care (01) ==
LOC: M ED 21:37
DX: R11.2 Nausea with vomiting, unspecified (principal); R50.9 Fever, unspecified; F17.210 Nicotine dependence, cigarettes, uncomplicated; F41.9 Anxiety disorder, unspecified
CPT/HCPCS: 80048; 80076; 80306; 81001; 82150; 83690; 85025; 87086; 96361; 96374; 96375; 99283; J1885; J2405

== ENCOUNTER → 2018-02-14 | Outpatient (REF) | payer OTHER, SELFPAY ==
[2018-02-14 12:58] LABS: BASO # 0.1 10^3/uL (0.0-0.2); BASO % 1.2 % (0.0-1.0); EOS # 0.3 10^3/uL (0.0-0.50); EOS % 5.1 % (0.0-3.0); HEMATOCRIT 49.1 % (42.0-52.0); HEMOGLOBIN 16.6 g/dl (13.5-17.5); IMMATURE GRANULOCYTE % 0.2 % (0-3.0); LYMPH # 1.7 10^3/uL (1.5-6.5); LYMPH % 34.1 % (24.0-44.0); MEAN CORPUSCULAR HEMOGLOBIN 31.5 pg (27.0-33.0); MEAN CORPUSCULAR HGB CONC 33.8 g/dl (32.0-36.5); MEAN CORPUSCULAR VOLUME 93.2 fl (80.0-96.0); MONO # 0.7 10^3/uL (0.0-0.8); MONO % 12.9 % (0.0-5.0); NEUTROPHILS # 2.4 10^3/uL (1.8-7.7); NEUTROPHILS % 46.5 % (36.0-66.0); PLATELET COUNT, AUTOMATED 249 10^3/uL (150-450); RED BLOOD COUNT 5.27 10^6/uL (4.30-6.10); RED CELL DISTRIBUTION WIDTH 12.2 % (11.5-14.5); WHITE BLOOD COUNT 5.1 10^3/uL (4.0-10.0)
[2018-02-14 16:27] LABS: ALBUMIN 3.9 GM/DL (3.2-5.2); ALBUMIN/GLOBULIN RATIO 1.34 (1.00-1.93); ALKALINE PHOSPHATASE 88 U/L (45-117); ALT/SGPT 17 U/L (12-78); ANION GAP 8 MEQ/L (8-16); AST/SGOT 13 U/L (7-37); BILIRUBIN,TOTAL 0.8 MG/DL (0.2-1.0); BLOOD UREA NITROGEN 13 MG/DL (7-18); CALCIUM LEVEL 8.8 MG/DL (8.5-10.1); CARBON DIOXIDE LEVEL 30 MEQ/L (21-32); CHLORIDE LEVEL 104 MEQ/L (98-107); CHOLESTEROL LEVEL 116 MG/DL (<200); CHOLESTEROL RISK RATIO 2.416 (<5); CREATININE FOR GFR 1.01 MG/DL (0.70-1.30); GLOMERULAR FILTRATION RATE > 60.0 (>60); GLUCOSE, FASTING 75 MG/DL (70-100); HDL CHOLESTEROL 48 MG/DL (>40); LDL CHOLESTEROL 57.4 MG/DL (<100); NON-HDL-C 68 MG/DL; POTASSIUM SERUM 4.7 MEQ/L (3.5-5.1); SODIUM LEVEL 142 MEQ/L (136-145); TOTAL PROTEIN 6.8 GM/DL (6.4-8.2); TRIGLYCERIDES LEVEL 53 MG/DL (<150)
== END ==
LOC: M SFHCADAM 10:40
DX: Z00.00 Encounter for general adult medical examination without abnormal findings (principal); F17.210 Nicotine dependence, cigarettes, uncomplicated; F41.9 Anxiety disorder, unspecified
CPT/HCPCS: 84443

== ENCOUNTER 2018-03-14 09:17 | Emergency (ER) | payer SELFPAY, OTHER | END 2018-03-14 11:35 | disposition home or self-care (01) | LOC: M ED 09:17 | DX: M25.774 Osteophyte, right foot (principal); F17.210 Nicotine dependence, cigarettes, uncomplicated | CPT/HCPCS: 73660 ==

== ENCOUNTER 2018-08-04 18:35 | Emergency (ER) | payer SELFPAY ==
[2018-08-04] MEDS: LIDOCAINE W/EPINEPHRINE 1% 20ML VIAL SC (19:25)
[2018-08-04] MEDS: ONDANSETRON 4 MG ORAL DISINTEGRATING TAB (Q0162 PER 1MG) PO (20:16)
== END 2018-08-04 20:18 | disposition home or self-care (01) ==
LOC: M ED 18:35
DX: S60.852A Superficial foreign body of left wrist, initial encounter (principal); W45.8XXA Other foreign body or object entering through skin, initial encounter
CPT/HCPCS: 73100

== ENCOUNTER 2019-01-21 20:25 | Emergency (ER) | payer MEDICAID, OTHER, SELFPAY ==
[~2019-01-21] VITALS: Ht 172.7 cm; Wt 138.0 kg
[2019-01-21 20:25] VITALS: BP 151/71
[~2019-01-21 20:25] MED LIST: AUGM875T28 PO; KEFL500C17 PO
[2019-01-21] MEDS ORDERED: ACET-897 PO (20:36)
--- NOTE | 2019-01-21 20:52 | REP ---
Clinical: Trauma. Head injury Comparison: None . Findings: The ventricles, sulci, and cisterns are normal in position and appearance. Dorantes-white differentiation is maintained. No acute intracranial hemorrhage, mass/mass effect, pathology or trauma/injury. No evidence for acute infarction. No extra-axial fluid collection. Calvarium is intact. Paranasal sinuses and mastoid air cells are clear. Impression: Normal noncontrast head CT. No evidence for acute intracranial pathology or trauma/injury. Electronically Signed by Raghu Kaur MD 01/21/2019 08:44 P
[2019-01-21] MEDS ORDERED: ONDA4TAB6 PO (22:41)
[2019-01-21] MEDS ORDERED: ONDANSETRON 4 MG ORAL DISINTEGRATING TAB (Q0162 PER 1MG) PO ONE (22:45)
== END 2019-01-21 22:54 | disposition home or self-care (01) ==
LOC: M ED 20:25
DX: S06.0X0A Concussion without loss of consciousness, initial encounter (principal); W22.8XXA Striking against or struck by other objects, initial encounter; Y92.099 Unspecified place in other non-institutional residence as the place of occurrence of the external cause; Y93.9 Activity, unspecified; Y99.9 Unspecified external cause status
CPT/HCPCS: 70450; 99283; Q0162

== ENCOUNTER 2019-10-29 10:43 | Emergency (ER) | payer MEDICAID, OTHER ==
[~2019-10-29] VITALS: Ht 175.3 cm; Wt 68.7 kg
[~2019-10-29 10:43] MED LIST changes: +ACET-897 PO; +ONDA4TAB6 PO
[2019-10-29] MEDS ORDERED: IBUP200C25 PO (10:51)
[2019-10-29 12:18] LABS: BASO % 0.3 % (0.0-1.0); EOS # 0.2 10^3/uL (0.0-0.5); EOS % 2.2 % (0.0-3.0); HEMATOCRIT 46.9 % (42.0-52.0); HEMOGLOBIN 15.7 g/dl (13.5-17.5); LYMPH # 1.5 10^3/uL (1.5-5.0); LYMPH % 15.1 % (24.0-44.0); MEAN CORPUSCULAR HEMOGLOBIN 31.4 pg (27.0-33.0); MEAN CORPUSCULAR HGB CONC 33.5 g/dl (32.0-36.5); MEAN CORPUSCULAR VOLUME 93.8 fl (80.0-96.0); MONO # 0.9 10^3/uL (0.0-0.8); MONO % 8.4 % (0.0-5.0); NEUTROPHILS # 7.5 10^3/uL (1.5-8.5); NEUTROPHILS % 73.7 % (36.0-66.0); PLATELET COUNT, AUTOMATED 255 10^3/uL (150-450); WHITE BLOOD COUNT 10.2 10^3/uL (4.0-10.0)
[2019-10-29 12:38] LABS: BLOOD UREA NITROGEN 18 MG/DL (7-18); CALCIUM LEVEL 9.6 MG/DL (8.5-10.1); CARBON DIOXIDE LEVEL 31 MEQ/L (21-32); CHLORIDE LEVEL 105 MEQ/L (98-107); CREATININE FOR GFR 0.99 MG/DL (0.70-1.30); GLOMERULAR FILTRATION RATE > 60.0 (>60); GLUCOSE, FASTING 69 MG/DL (70-100); POTASSIUM SERUM 4.7 MEQ/L (3.5-5.1); SODIUM LEVEL 138 MEQ/L (136-145)
--- NOTE | 2019-10-29 12:52 | REP ---
KUB: Single view. History: Right renal colic. Findings: Bowel gas pattern is normal. There are phleboliths bilaterally in the pelvis. No urinary tract calculus is visible. Psoas margins and flank stripes are intact. No bony abnormality. Impression: Negative KUB. Bilateral pelvic phleboliths noted. No urinary tract calculus is appreciated. Electronically Signed by Christiano Kim MD 10/29/2019 12:44 P
[2019-10-29] MEDS ORDERED: CIPR-249 PO (14:31)
[2019-10-29] MEDS ORDERED: ONDA4TAB6 PO (14:31)
[2019-10-29] MEDS ORDERED: IBUP-1022 PO (14:31)
--- NOTE | 2019-10-29 14:31 | REP ---
RENAL ULTRASOUND: Real-time sonographic evaluation of the kidneys performed and demonstrates both kidneys to be normal in size and echotexture, right kidney measuring 10.3 x 5.9 x 5.6 cm and left kidney 10.9 x 4.8 x 5.8 cm. There is no hydronephrosis or nephrolithiasis identified bilaterally. No renal mass is seen. Urinary bladder is not well distended and not well evaluated. Ureteral jets could not be visualized with Doppler color evaluation. IMPRESSION: No hydronephrosis or nephrolithiasis identified. Electronically Signed by Sanjay Dorantes MD 10/29/2019 05:55 P
[2019-10-29 14:49] VITALS: BP 139/73
[2019-10-29] MEDS ORDERED: CIPROFLOXACIN 500 MG TAB PO ONE (15:00)
== END 2019-10-29 14:51 | disposition home or self-care (01) ==
LOC: M ED 10:43
DX: N39.0 Urinary tract infection, site not specified (principal); R31.9 Hematuria, unspecified

== ENCOUNTER 2020-01-11 07:08 | Emergency (ER) | payer OTHER ==
[~2020-01-11] VITALS: Ht 175.3 cm; Wt 69.9 kg
[~2020-01-11 07:08] MED LIST changes: +CIPR-249 PO; +IBUP-1022 PO; +IBUP200C25 PO
[2020-01-11] MEDS ORDERED: NAPR-885 PO (07:15)
[2020-01-11] MEDS ORDERED: PENI500T PO (07:15)
[2020-01-11] MEDS ORDERED: CIPR-249 PO (08:54)
[2020-01-11] MEDS ORDERED: PYRI1TAB5 PO (08:54)
[2020-01-11] MEDS ORDERED: CIPROFLOXACIN 500MG TABLET PO ONE (09:00)
[2020-01-11] MEDS ORDERED: PHENAZOPYRIDINE 100 MG TAB PO ONE (09:00)
[2020-01-11 09:02] VITALS: BP 128/68
== END 2020-01-11 09:06 | disposition home or self-care (01) ==
LOC: M ED 07:08
DX: N39.0 Urinary tract infection, site not specified (principal)

== ENCOUNTER 2020-01-14 22:26 | Emergency (ER) | payer OTHER ==
[~2020-01-14] VITALS: Ht 177.8 cm; Wt 69.7 kg
[~2020-01-14 22:26] MED LIST changes: +NAPR-885 PO; +PENI500T PO; +PYRI1TAB5 PO
[2020-01-14] MEDS ORDERED: PANTOPRAZOLE 40MG VIAL (C9113 PER 1) IV ONE (23:00)
[2020-01-14] MEDS ORDERED: NS 1,000 ML IV ONE (23:00)
[2020-01-14] MEDS ORDERED: ONDANSETRON 4MG/2ML VIAL IV ONE (23:15)
[2020-01-14 23:18] LABS: BASO # 0.1 10^3/uL (0.0-0.2); BASO % 0.9 % (0.0-1.0); EOS # 0.4 10^3/uL (0.0-0.5); EOS % 6.5 % (0.0-3.0); HEMATOCRIT 43.1 % (42.0-52.0); HEMOGLOBIN 14.3 g/dl (13.5-17.5); LYMPH # 2.4 10^3/uL (1.5-5.0); LYMPH % 37.2 % (24.0-44.0); MEAN CORPUSCULAR HGB CONC 33.2 g/dl (32.0-36.5); MEAN CORPUSCULAR VOLUME 93.5 fl (80.0-96.0); MONO # 0.8 10^3/uL (0.0-0.8); MONO % 11.8 % (0.0-5.0); NEUTROPHILS # 2.7 10^3/uL (1.5-8.5); NEUTROPHILS % 43.3 % (36.0-66.0); PLATELET COUNT, AUTOMATED 257 10^3/uL (150-450); RED BLOOD COUNT 4.61 10^6/uL (4.30-6.10); WHITE BLOOD COUNT 6.3 10^3/uL (4.0-10.0)
[2020-01-14 23:47] LABS: ALBUMIN 3.7 GM/DL (3.2-5.2); ALT/SGPT 24 U/L (12-78); BILIRUBIN,DIRECT 0.2 MG/DL (0.0-0.2); BILIRUBIN,TOTAL 0.5 MG/DL (0.2-1.0); BLOOD UREA NITROGEN 17 MG/DL (7-18); CALCIUM LEVEL 8.9 MG/DL (8.5-10.1); CARBON DIOXIDE LEVEL 31 MEQ/L (21-32); CHLORIDE LEVEL 105 MEQ/L (98-107); CREATININE FOR GFR 1.01 MG/DL (0.70-1.30); GLOMERULAR FILTRATION RATE > 60.0 (>60); GLUCOSE, FASTING 88 MG/DL (70-100); LIPASE 141 U/L (73-393); POTASSIUM SERUM 4.1 MEQ/L (3.5-5.1); SODIUM LEVEL 141 MEQ/L (136-145); TOTAL PROTEIN 6.8 GM/DL (6.4-8.2)
[2020-01-15] MEDS ORDERED: MAGNESIUM CITRATE 300 ML BTL PO ONE
[2020-01-15] MEDS ORDERED: MIRA3350 PO (01:11)
[2020-01-15 01:18] VITALS: BP 127/57
== END 2020-01-15 01:30 | disposition home or self-care (01) ==
LOC: M ED 22:26
DX: R10.9 Unspecified abdominal pain (principal); F41.9 Anxiety disorder, unspecified
CPT/HCPCS: 36415; 80048; 80076; 83690; 85025; 96360; 96361; 96375; 99284; C9113; J2405

== ENCOUNTER → 2020-01-25 | Outpatient (REF) | payer OTHER ==
[~2020-01-25] MED LIST changes: +MIRA3350 PO
[2020-01-25 18:38] LABS: APPEARANCE, URINE CLEAR (CLEAR); BACTERIA, URINE AUTO NEGATIVE (NEGATIVE); BILIRUBIN, URINE AUTO NEGATIVE (NEGATIVE); BLOOD, URINE BLOOD NEGATIVE (NEGATIVE); COLOR, URINE YELLOW (YELLOW); GLUCOSE, URINE (UA) AUTO NEGATIVE (NEGATIVE); KETONE, URINE AUTO NEGATIVE (NEGATIVE); LEUKOCYTE ESTERASE, URINE AUTO NEGATIVE (NEGATIVE); NITRITE, URINE AUTO NEGATIVE (NEGATIVE); PROTEIN, URINE AUTO NEGATIVE (NEGATIVE); RBC, URINE AUTO 0 /HPF (0-3); SPECIFIC GRAVITY URINE AUTO 1.021 (1.002-1.035); SQUAMOUS EPITHELIAL CELL UR AU 0 /HPF (0-6); UROBILINOGEN, URINE AUTO 0.2 mg/dL (0.0-2.0); WBC, URINE AUTO 0 /HPF (0-3)
== END ==
LOC: M SMT 17:09
PROVIDERS: ATTEND Nurse Practitioner Women's Health
DX: N39.0 Urinary tract infection, site not specified (principal)

== ENCOUNTER 2020-03-01 21:57 | Emergency (ER) | payer OTHER ==
[~2020-03-01] VITALS: Ht 177.8 cm; Wt 69.5 kg
[2020-03-01] MEDS ORDERED: ACET500T15 PO (22:04)
[2020-03-01] MEDS ORDERED: DICY10CA13 PO (22:04)
[2020-03-01] MEDS ORDERED: BUSP5TA PO (22:04)
[2020-03-01] MEDS ORDERED: ONDA-83 PO (22:04)
[2020-03-01] MEDS ORDERED: NS 1,000 ML IV ONE (22:30)
[2020-03-01] MEDS ORDERED: diphenhydrAMINE 50MG/ML VIAL (J1200) IV ONE (22:30)
[2020-03-01] MEDS ORDERED: dexameTHASONE 4 MG/ML 1ML VIAL (J1100 PER 1MG) IV ONE (22:30)
[2020-03-01] MEDS ORDERED: ACETAMINOPHEN 500 MG TAB PO ONE (22:30)
[2020-03-01] MEDS ORDERED: METOCLOPRAMIDE INJ 10MG/2ML VIAL (J2765 PER 1) IV ONE (22:30)
[2020-03-01] MEDS ORDERED: KETOROLAC 30 MG/ML 1ML VIAL IV ONE (22:30)
--- NOTE | 2020-03-01 22:47 | REPVR ---
PROCEDURE INFORMATION: Exam: CT Head Without Contrast Exam date and time: 03/01/2020 10:30 PM Age: 25 years old Clinical indication: Pain; Headache; Additional info: Headache with no HX TECHNIQUE: Imaging protocol: Computed tomography of the head without contrast. Radiation optimization: All CT scans at this facility use at least one of these dose optimization techniques: automated exposure control; mA and/or kV adjustment per patient size (includes targeted exams where dose is matched to clinical indication); or iterative reconstruction. COMPARISON: CT Head without contrast 01/21/2019 8:33 PM FINDINGS: Brain: Normal. No hemorrhage. Unremarkable white matter. No mass effect. Ventricles: Normal. No ventriculomegaly. Bones/joints: Unremarkable. No acute fracture. Sinuses: Visualized sinuses are unremarkable. No fluid levels. Mastoid air cells: Visualized mastoid air cells are well aerated. Soft tissues: Unremarkable. IMPRESSION: No acute intracranial abnormality. No interval change in comparison to 01/21/2019. Electronically signed by: Soham Celis On 03/01/2020 22:47:23 PM
[2020-03-01 23:56] VITALS: BP 104/64
== END 2020-03-01 23:57 | disposition home or self-care (01) ==
LOC: M ED 21:57
DX: R51 Headache (principal); F41.9 Anxiety disorder, unspecified; Z79.899 Other long term (current) drug therapy
CPT/HCPCS: 70450; 96361; 96374; 96375; 99284; J1100; J1200; J1885; J2765

== ENCOUNTER 2020-05-02 21:13 | Emergency (ER) | payer OTHER ==
[~2020-05-02] VITALS: Ht 177.8 cm; Wt 65.0 kg
[~2020-05-02 21:13] MED LIST changes: +ACET500T15 PO; +BUSP5TA PO; +DICY10CA13 PO; +ONDA-83 PO
[2020-05-02 21:48] LABS: BASO # 0.1 10^3/uL (0.0-0.2); BASO % 0.7 % (0.0-1.0); EOS # 0.3 10^3/uL (0.0-0.5); EOS % 3.8 % (0.0-3.0); HEMOGLOBIN 15.9 g/dl (13.5-17.5); LYMPH # 2.5 10^3/uL (1.5-5.0); MEAN CORPUSCULAR HEMOGLOBIN 31.4 pg (27.0-33.0); MEAN CORPUSCULAR HGB CONC 33.8 g/dl (32.0-36.5); MEAN CORPUSCULAR VOLUME 92.7 fl (80.0-96.0); MONO # 0.7 10^3/uL (0.0-0.8); MONO % 9.3 % (0.0-5.0); NEUTROPHILS % 52.8 % (36.0-66.0); PLATELET COUNT, AUTOMATED 219 10^3/uL (150-450); RED BLOOD COUNT 5.07 10^6/uL (4.30-6.10); WHITE BLOOD COUNT 7.6 10^3/uL (4.0-10.0)
[2020-05-02 22:00] LABS: INR 0.91; PROTHROMBIN TIME 12.5 SECONDS (11.8-14.0)
[2020-05-02 22:01] LABS: PARTIAL THROMBOPLASTIN TIME 28.1 SECONDS (25.0-38.4)
[2020-05-02] MEDS ORDERED: ESCI10TA2 PO (22:02)
[2020-05-02 22:08] LABS: D-DIMER QUANT < 270 ng/ml (<500)
--- NOTE | 2020-05-02 22:14 | REPVR ---
PROCEDURE INFORMATION: Exam: XR Chest, 2 Views Exam date and time: 05/02/2020 9:17 PM Age: 25 years old Clinical indication: Other: Chest pain TECHNIQUE: Imaging protocol: XR of the chest Views: 2 views. COMPARISON: CR Chest, 2 view PA, Lat 11/08/2013 4:08 PM FINDINGS: Lungs: Unremarkable. No consolidation. Pleural space: Unremarkable. No pleural effusion. No pneumothorax. Heart/Mediastinum: Unremarkable. No cardiomegaly. Bones/joints: Shallow dextroscoliosis. IMPRESSION: No acute findings. Electronically signed by: Soham Celis On 05/02/2020 22:14:24 PM
[2020-05-02 22:18] LABS: ALT/SGPT 19 U/L (12-78); BLOOD UREA NITROGEN 15 MG/DL (7-18); CALCIUM LEVEL 9.6 MG/DL (8.5-10.1); CARBON DIOXIDE LEVEL 29 MEQ/L (21-32); CHLORIDE LEVEL 104 MEQ/L (98-107); CREATININE FOR GFR 0.97 MG/DL (0.70-1.30); GLOMERULAR FILTRATION RATE > 60.0 (>60); GLUCOSE, FASTING 100 MG/DL (70-100); POTASSIUM SERUM 3.9 MEQ/L (3.5-5.1); SODIUM LEVEL 139 MEQ/L (136-145)
[2020-05-02 22:19] LABS: ALBUMIN 4.1 GM/DL (3.2-5.2); BILIRUBIN,DIRECT 0.1 MG/DL (0.0-0.2); BILIRUBIN,TOTAL 0.3 MG/DL (0.2-1.0); CK-MB VALUE MASS < 1.0 NG/ML (<3.6); CPK CREATINE PHOSPHOKINASE 101 U/L (39-308); FREE T4 1.04 NG/DL (0.76-1.46); LIPASE 147 U/L (73-393); MB/CK RELATIVE INDEX 0.99 (< OR =4); TOTAL PROTEIN 7.2 GM/DL (6.4-8.2); TROPONIN I < 0.02 NG/ML (< 0.10)
[2020-05-03 00:03] LABS: CK-MB VALUE MASS < 1.0 NG/ML (<3.6); CPK CREATINE PHOSPHOKINASE 95 U/L (39-308); MB/CK RELATIVE INDEX 1.05 (< OR =4); TROPONIN I < 0.02 NG/ML (< 0.10)
[2020-05-03 00:15] VITALS: BP 110/58
--- NOTE | 2020-05-12 10:23 | ECGEPIP ---
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
--- NOTE | 2020-05-12 10:24 | ECGEPIP ---
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
== END 2020-05-03 00:49 | disposition home or self-care (01) ==
LOC: M ED 21:13
DX: R07.9 Chest pain, unspecified (principal); R06.02 Shortness of breath; R11.2 Nausea with vomiting, unspecified; R42 Dizziness and giddiness; F41.9 Anxiety disorder, unspecified; Z87.891 Personal history of nicotine dependence; Z79.899 Other long term (current) drug therapy

== ENCOUNTER 2020-09-29 05:50 | Emergency (ER) | payer OTHER ==
[~2020-09-29] VITALS: Ht 177.8 cm; Wt 67.2 kg
[~2020-09-29 05:50] MED LIST changes: +ESCI10TA16 PO
--- OUTSIDE RECORDS SUMMARY | 2020-09-29 05:56 | CCD ---
Author Author [facility] Organization [facility] Address Unknown Phone Unavailable Care Team Providers Care Binder Coverstitch Name Role Phone Lila HUDSON MD Unavailable Unavailable ANTECOL, Lila DEGROOT MD Unavailable Unavailable ANTECOLLial MD Unavailable Unavailable ANTECOLLila MD Unavailable Unavailable ANTECOLLila MD Unavailable Unavailable ANTECOLLila MD Unavailable Unavailable ANTECOLLila MD Unavailable Unavailable ANTECOLLila MD Unavailable Unavailable ANTECOLLila MD Unavailable Unavailable ANTECOLLila MD Unavailable Unavailable ANTECOLLila MD Unavailable Unavailable ANTECOLLila MD Unavailable Unavailable ANTECOLLila MD Unavailable Unavailable ANTECOLLila MD Unavailable Unavailable ANTECOLLila MD Unavailable Unavailable ANTECOLLila MD Unavailable Unavailable ANTECOLLila MD Unavailable Unavailable ANTECOLLila MD Unavailable Unavailable ANTECOLLila MD Unavailable Unavailable ANTECOLLila MD Unavailable Unavailable ANTECOLLila MD Unavailable Unavailable ANTECOLLila MD Unavailable Unavailable ANTECOLLila MD Unavailable Unavailable ANTECOLLila MD Unavailable Unavailable ANTECOLLila MD Unavailable Unavailable ANTECOLLila MD Unavailable Unavailable ANTECOLLila MD Unavailable Unavailable ANTECOLLila MD Unavailable Unavailable ANTECOL, Lila DEGROOT MD Unavailable Unavailable ANTECOL, Lila DEGROOT MD Unavailable Unavailable ANTECOL, Lila DEGROOT MD Unavailable Unavailable ANTECOL, Lila DEGROOT MD Unavailable Unavailable ANTECOL, Lila DEGROOT MD Unavailable Unavailable ANTECOL, Lila DEGROOT MD Unavailable Unavailable ANTECOL, Lila DEGROOT MD Unavailable Unavailable ANTECOL, Lila DEGROOT MD Unavailable Unavailable ANTECOL, Lila DEGROOT MD Unavailable Unavailable ANTECOL, Lila DEGROOT MD Unavailable Unavailable ANTECOL, Lila DEGROOT MD Unavailable Unavailable ANTECOL, Lila DEGROOT MD Unavailable Unavailable ANTECOL, Lila DEGROOT MD Unavailable Unavailable ANTECOL, Lila DEGROOT MD Unavailable Unavailable ANTECOL, Lila DEGROOT MD Unavailable Unavailable ANTECOL, Lila DEGROOT MD Unavailable Unavailable ANTECOL, Lila DEGROOT MD Unavailable Unavailable ANTECOL, Lila DEGROOT MD Unavailable Unavailable ANTECOL, Lila DEGROOT MD Unavailable Unavailable ANTECOL, Lila DEGROOT MD Unavailable Unavailable ANTECOL, iLla DEGROOT MD Unavailable Unavailable ANTECOL, Lila DEGROOT MD Unavailable Unavailable ANTECOL, Lila DEGROOT MD Unavailable Unavailable ANTECOL, Lila DEGROOT MD Unavailable Unavailable ANTECOL, Lila DEGROOT MD Unavailable Unavailable ANTECOL, Lila DEGROOT MD Unavailable Unavailable ANTECOL, Lila DEGROOT MD Unavailable Unavailable Fish, J Adilson Unavailable Unavailable Fish, J Adilson Unavailable Unavailable Fish, J Adilson Unavailable Unavailable Fish, J Adilson Unavailable Unavailable Fish, J Adilson Unavailable Unavailable Fish, J Adilson Unavailable Unavailable Fish, J Adilson Unavailable Unavailable Fish, J Adilson Unavailable Unavailable Fish, J Adilson Unavailable Unavailable Fish, J Adilson Unavailable Unavailable Fish, J Adilson Unavailable Unavailable Fish, J Adilson Unavailable Unavailable Fish, J Adilson Unavailable Unavailable Fish, J Adilson Unavailable Unavailable Fish, J Adilson Unavailable Unavailable Fish, J Adilson Unavailable Unavailable Fish, J Adilson Unavailable Unavailable Fish, J Adilson Unavailable Unavailable Fish, J Adilson Unavailable Unavailable Fish, J Adilson Unavailable Unavailable Fish, J Adilson Unavailable Unavailable Fish, J Adilson Unavailable Unavailable Fish, J Adilson Unavailable Unavailable Fish, J Adilson Unavailable Unavailable Fish, J Adilson Unavailable Unavailable Fish, J Adilson Unavailable Unavailable Fish, J Adilson Unavailable Unavailable Fish, J Adilson Unavailable Unavailable Fish, J Adilson Unavailable Unavailable Fish, J Adilson Unavailable Unavailable Fish, J Adilson Unavailable Unavailable Fish, J Adilson Unavailable Unavailable Fish, J Adilson Unavailable Unavailable Fish, J Adilson Unavailable Unavailable Fish, J Adilson Unavailable Unavailable Fish, J Adilson Unavailable Unavailable Fish, J Adilson Unavailable Unavailable Fish, J Adilson Unavailable Unavailable Fish, J Adilson Unavailable Unavailable Fish, J Adilson Unavailable Unavailable Fish, J Adilson Unavailable Unavailable Fish, J Adilson Unavailable Unavailable Fish, J Adilson Unavailable Unavailable Fish, J Adilson Unavailable Unavailable Fish, J Adilson Unavailable Unavailable Fish, J Adilson Unavailable Unavailable Fish, J Adilson Unavailable Unavailable Fish, J Adilson Unavailable Unavailable Fish, J Adilson Unavailable Unavailable Fish, J Adilson Unavailable Unavailable Fish, J Adilson Unavailable Unavailable Fish, J Adilson Unavailable Unavailable Fish, J Adilson Unavailable Unavailable Fish, J Adilson Unavailable Unavailable Fish, J Adilson Unavailable Unavailable Fish, J Adilson Unavailable Unavailable Fish, J Adilson Unavailable Unavailable Fish, J Adilson Unavailable Unavailable Fish, J Adilson Unavailable Unavailable Fish, J Adilson Unavailable Unavailable Fish, J Adilson Unavailable Unavailable Fish, J Adilson Unavailable Unavailable Fish, J Adilson Unavailable Unavailable Fish, J Adilson Unavailable Unavailable Fish, J Adilson Unavailable Unavailable Fish, J Adilson Unavailable Unavailable Fish, J Adilson Unavailable Unavailable Fish, J Adilson Unavailable Unavailable Fish, J Adilson Unavailable Unavailable Fish, J Adilson Unavailable Unavailable Fish, J Adilson Unavailable Unavailable Fish, J Adilson Unavailable Unavailable Fish, J Adilson Unavailable Unavailable Fish, J Adilson Unavailable Unavailable Fish, J Adilson Unavailable Unavailable Fish, J Adilson Unavailable Unavailable Fish, J Adilson Unavailable Unavailable Fish, J Adilson Unavailable Unavailable Fish, J Adilson Unavailable Unavailable Fish, J Adilson Unavailable Unavailable Fish, J Adilson Unavailable Unavailable Fish, J Adilson Unavailable Unavailable Fish, J Adilson Unavailable Unavailable Fish, J Adilson Unavailable Unavailable Fish, J Adilson Unavailable Unavailable Barraclough, Emily PA Unavailable Unavailable Barraclough, Emily PA Unavailable Unavailable Barraclough, Emily PA Unavailable Unavailable Barraclough, Emily PA Unavailable Unavailable Barraclough, Emily PA Unavailable Unavailable Barraclough, Emily PA Unavailable Unavailable Maring, Selam PA Unavailable Unavailable Maring, Selam PA Unavailable Unavailable Maring, Selam PA Unavailable Unavailable Maring, Selam PA Unavailable Unavailable Maring, Selam PA Unavailable Unavailable Maring, Selam PA Unavailable Unavailable Maring, Selam PA Unavailable Unavailable Maring, Selam PA Unavailable Unavailable Maring, Selam PA Unavailable Unavailable Maring, Selam PA Unavailable Unavailable Maring, Selam PA Unavailable Unavailable Maring, Selam PA Unavailable Unavailable Maring, Selam PA Unavailable Unavailable Maring, Selam PA Unavailable Unavailable STOCK, L ROMERO PA Unavailable Unavailable STOCK, L ROMERO PA Unavailable Unavailable STOCK, L ROMERO PA Unavailable Unavailable STOCK, L ROMERO PA Unavailable Unavailable STOCK, L ROMERO PA Unavailable Unavailable STOCK, L ROMERO PA Unavailable Unavailable STOCK, L ROMERO PA Unavailable Unavailable STOCK, L ROMERO PA Unavailable Unavailable STOCK, L ROMERO PA Unavailable Unavailable STOCK, L ROMERO PA Unavailable Unavailable STOCK, L ROMERO PA Unavailable Unavailable STOCK, L ROMERO PA Unavailable Unavailable STOCK, L ROMERO PA Unavailable Unavailable STOCK, L ROMERO PA Unavailable Unavailable STOCK, L ROMERO PA Unavailable Unavailable STOCK, L ROMERO PA Unavailable Unavailable STOCK, L ROMERO PA Unavailable Unavailable STOCK, L ROMERO PA Unavailable Unavailable STOCK, L ROMERO PA Unavailable Unavailable STOCK, L ROMERO PA Unavailable Unavailable STOCK, L ROMERO PA Unavailable Unavailable STOCK, L ROMERO PA Unavailable Unavailable STOCK, L ROMERO PA Unavailable Unavailable STOCK, L ROMERO PA Unavailable Unavailable STOCK, L ROMERO PA Unavailable Unavailable Re-disclosure Warning The records that you are about to access may contain information from federally-assisted alcohol or drug abuse programs. If such information is present, then the following federally mandated warning applies: This information has been disclosed to you from records protected by federal confidentiality rules (42 CFR part 2). The federal rules prohibit you from making any further disclosure of this information unless further disclosure is expressly permitted by the written consent of the person to whom it pertains or as otherwise permitted by 42 CFR part 2. A general authorization for the release of medical or other information is NOT sufficient for this purpose. The Federal rules restrict any use of the information to criminally investigate or prosecute any alcohol or drug abuse patient.The records that you are about to access may contain highly sensitive health information, the redisclosure of which is protected by Article 27-F of the [facility] Public Health law. If you continue you may have access to information: Regarding HIV / AIDS; Provided by facilities licensed or operated by the [facility] Office of Mental Health; or Provided by the [facility] Office for People With Developmental Disabilities. If such information is present, then the following [facility] mandated warning applies: This information has been disclosed to you from confidential records which are protected by state law. State law prohibits you from making any further disclosure of this information without the specific written consent of the person to whom it pertains, or as otherwise permitted by law. Any unauthorized further disclosure in violation of state law may result in a fine or prison sentence or both. A general authorization for the release of medical or other information is NOT sufficient authorization for further disc losure. Allergies and Adverse Reactions Type Description Substance Reaction Status Data Source(s ) Drug allergy Drug allergy NKDA [facility] ([facility]) Family History Family Member Name Family Member Gender Family Member Status Date o f Status Description Data Source(s) Unknown Unknown Problem [facility] ([facility]) Encounters Encounter Providers Location Date Indications Data Source(s ) O Attender: Selam GAYTAN 09/16/19 01:06:50 PM EST - 09/16/2020 01:58:53 PM EST [facility] ([facility] ) Outpatient Attender: Emily GAYTAN [place] [facility] 08/20/2020 01:00:00 PM EST [facility] ([facility] Outpatient Attender: Adilson Huynh [place] [facility] 06/12/2020 02:45:0 0 PM EDT [facility] ([facility] Outpatient Attender: Emily GAYTAN [place] [facility] 06/06/2020 09:00:00 AM EDT [facility] ([facility] Outpatient Attender: Emily GAYTAN [place] [facility] 05/09/2020 01:00:00 PM EDT [facility] ([facility] Att[facility]: [facility]AN [place] [facility] 04/[facility]2020 11:30:00 AM EDT [facility] ([facility] Outpatient Attender: MIKAYLA HUDSON MD Main Office 03/26/2020 03:30:00 PM EDT [facility] ([facility]) Outpatient Attender: Emily GAYTAN [place] [facility] 03/19/2020 08:30:00 AM EDT [facility] ([facility] Outpatient Attender: Emily [facility]TAN [facility] 03/05/2020 10:40:00 AM EDT [facility] ([facility] Outpatient Attender: Adilson [facility] 02/28/2020 03:00:0 0 PM EDT MED[facility] ([facility] 03:00:0 0 PM EDT [facility] ([facility]: [facility]2020 03:00:0 0 PM EDT [facility] ([facility] [address] [address] 01/16/2020 12:00:00 AM EDT eCW1 ([facility]) Outpatient Referrer: ROMERO GAYTAN 11/01/2019 01:57:00 PM EST [facility] Medications Medication Brand Name Start Date Product Form Dose Route Admi nistrative Instructions Pharmacy Instructions Status Indications Reaction Description Data Source(s) 875-125 mg 09/10/2020 12:00:00 AM EST tablet 20 TAKE ONE TABLET BY MOUTH TWICE A DAY FOR 10 DAYS TAKE ONE TABLET BY MOUTH TWICE A DAY FOR 10 DAYS SOLD: 09/10/2020 [facility] 20 mg 08/20/2020 12:00:00 AM EST capsule,delayed release (DR/EC) 30 TAKE ONE CAPSULE BY MOUTH EVERY DAY TAKE ONE CAPSULE BY MOUTH EVERY DAY SOLD: 08/25/2020 [facility] Metronidazole 500 MG Oral Tablet [Flagyl] Flagyl 08/20/2020 12:00 :00 AM EST ORAL active [facility] ([facility] Metronidazole 500 MG Oral Tablet METRONIDAZOLE 08/20/2020 12:0 0:00 AM EST tablet 14 TAKE ONE TABLET BY MOUTH TWO SELAM ES A DAY FOR 7 DAYS ..NO ALCOHOL TAKE ONE TABLET BY MOUTH TWO TIMES A DAY FOR 7 DAYS ..NO ALCOHOL SOLD: 08/25/2020 [facility] Omeprazole 20 MG Delayed Release Oral Capsule Omeprazole 08/20/2020 12:00:00 AM EST ORAL active [facility] ([facility] Fluoxetine 20 MG Oral Capsule Fluoxetine HCL 08/20/2020 12:00:[address] ORAL active [facility] ([facility] 20 mg 08/20/2020 12:00:00 AM EST capsule 30 TAKE ONE CAPSULE BY MOUTH EVERY DAY TAKE ONE CAPSULE BY MOUTH EVERY DAY SOLD: 08/25/2020 [facility] 10 mg 06/07/2020 12:00:00 AM EDT capsule 30 TAKE ONE CAPSULE BY MOUTH EVERY DAY TAKE ONE CAPSULE BY MOUTH EVERY DAY SOLD: 06/09/2020 [facility] 10 mg 06/07/2020 12:00:00 AM EDT capsule 30 TAKE ONE CAPSULE BY MOUTH EVERY DAY TAKE ONE CAPSULE BY MOUTH EVERY DAY SOLD: 07/11/2020 [facility] 10 mg 06/07/2020 12:00:00 AM EDT capsule 30 TAKE ONE CAPSULE BY MOUTH EVERY DAY TAKE ONE CAPSULE BY MOUTH EVERY DAY SOLD: 08/06/2020 [facility] 10 mg 05/10/2020 12:00:00 AM EDT capsule 30 TAKE ONE CAPSULE BY MOUTH EVERY DAY TAKE ONE CAPSULE BY MOUTH EVERY DAY SOLD: 05/12/2020 [facility] No Active Medications 05/09/2020 12:00:00 AM EDT completed [facility] ([facility] Fluoxetine 10 MG Oral Capsule Fluoxetine HCL 05/09/2020 12:00:00 AM E DT ORAL completed [facility] ([facility] Escitalopram 10 MG Oral Tablet ESCITALOPRAM OXALATE 04/23/2020 1 2:00:00 AM EDT tablet 30 TAKE ONE TABLET BY MOUTH EVERY D AY TAKE ONE TABLET BY MOUTH EVERY DAY SOLD: 04/23/2020 [facility] Escitalopram 10 MG Oral Tablet [Lexapro] Lexapro 04/23/2020 12:00: 00 AM EDT ORAL completed [facility] ([facility] buspirone hydrochloride 5 MG Oral Tablet Buspirone HCL 03/25/2020 12:00:00 AM EDT ORAL active [facility] ([facility]) 25 mg 03/06/2020 12:00:00 AM EDT tablet 14 TAKE ONE TABLET BY MOUTH ONCE DAILY TAKE ONE TABLET BY MOUTH ONCE DAILY SOLD: 03/11/2020 [facility] Meclizine Hydrochloride 25 MG Chewable Tablet Meclizine HCL 03/05/2020 12:00:00 AM EDT ORAL completed [facility] ([facility] 10 mg 02/25/2020 12:00:00 AM EDT capsule 16 TAKE ONE CAPSULE BY MOUTH FOUR TIMES A DAY FOR 4 DAYS TAKE ONE CAPSULE BY MOUTH FOUR TIMES A DAY FOR 4 DAYS SOLD: 02/25/2020 [facility] 4 mg 02/25/2020 12:00:00 AM EDT tablet 15 TAKE ONE TABLET BY MOUTH THREE TIMES A DAY FOR 5 DAYS TAKE ONE TABLET BY MOUTH THREE TIMES A DAY FOR 5 DAYS SOLD: 02/25/2020 [facility] buspirone hydrochloride 5 MG Oral Tablet BUSPIRONE HCL 02/01/2020 12:00:00 AM EDT tablet 90 TAKE ONE TABLET BY MOUTH THREE TIMES A DAY NEEDED FOR ANXIETY TAKE ONE TABLET BY MOUTH THREE TIMES A DAY NEEDED F OR ANXIETY SOLD: 02/02/2020 [facility] buspirone hydrochloride 5 MG Oral Tablet Buspirone HCL 01/31/2020 12:00:00 AM EDT ORAL completed [facility] ([facility] Ciprofloxacin 500 MG Oral Tablet [Cipro] Cipro 500 MG Cipro 500 MG 01/16/2020 12:00:00 AM EDT active 1 tablet [facility] 500 mg 01/16/2020 12:00:00 AM EDT tablet 6 TAKE ONE TABLET BY MOUTH EVERY 12 HOURS FOR 3 DAYS TAKE ONE TABLET BY MOUTH EVERY 12 HOURS FOR 3 DAYS MYLES [facility] 500 mg 01/01/2020 12:00:00 AM EDT tablet 40 TAKE ONE TABLET BY MOUTH FOUR TIMES A DAY FOR 10 DAYS TAKE ONE TABLET BY MOUTH FOUR TIMES A DAY FOR 10 DAYS SOLD: 01/01/2020 [facility] 500 mg 01/01/2020 12:00:00 AM EDT tablet 20 TAKE 1 TABLET BY MOUTH EVERY 12 HOURS FOR 10 DAYS TAKE 1 TABLET BY MOUTH EVERY 12 HOURS FOR 10 DAYS SOLD : 01/01/2020 [facility] 500 mg 10/29/2019 12:00:00 AM EST tablet 14 TAKE ONE TABLET BY MOUTH TWICE A DAY TAKE ONE TABLET BY MOUTH TWICE A DAY SOLD: 10/29/2019 [facility] 4 mg 10/29/2019 12:00:00 AM EST tablet,disintegrating 6 DISSOLVE ONE TABLET ON TONGUE EVERY 8 HOURS NEEDED FOR FOR NAUSEA AND VOMITING DISSOLVE ONE TABLET ON TONGUE EVERY 8 HOURS NEEDED FOR FOR NAUSEA AND VOMITING SOLD: 10/29/2019 [facility] 600 mg 10/29/2019 12:00:00 AM EST tablet 30 TAKE ONE TABLET BY MOUTH EVERY 6 HOURS NEEDED FOR PAIN TAKE ONE TABLET BY MOUTH EVERY 6 HOURS A S NEEDED FOR PAIN SOLD: 10/29/2019 [facility] 875 mg 10/15/2019 12:00:00 AM EST tablet 20 TAKE ONE TABLET BY MOUTH TWICE A DAY FOR 10 DAYS TAKE ONE TABLET BY MOUTH TWICE A DAY FOR 10 DAYS SOLD: 10/15/2019 [facility] Insurance Providers Payer name Policy type / Coverage type Policy ID Covered libertarian ID Covered libertarian's relationship to ford Policy [employer] Plan Information [facility] [id number] SP [id number] [employer](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 [id number] Self [id number] [facility](MCAID) O [id number] S [id number] [place] [id number] SP [id number] MEDICAID [id number] SP [id number] SELF PAY ONLY [id number] SP [id number] UNAVAILABLE UNAVAILA BLE ANSI-Commercial [id number] MEDICAID M [id number] S [id number] [facility] [id number] SP [id number] SELF PAY UNAVAILABLE SP UNAVAILA BLE [facility] Health Maintenance Organization (HMO) Self [id number] MEDICAID - CLINIC [id number] BLUE [employer] BLUE [facility] [id number] [facility], [employer] [id number] SP [id number] [facility] BLUE [id number] SP [id number] BLUE [employer]AN [id number] SP [id number] [facility] Self Problems, Conditions, and Diagnoses Code Display Name Description Problem Type Effective Dates Data Source(s) 126077578 Gastroesophageal reflux disease Gastroesophageal reflux disease Problem 08/20/2020 12:00:00 AM EST [facility] ([facility] [id number] Near syncope Near syncope Problem 04/07/2020 12:00:00 A M EDT [facility] ([facility] [id number] Dizziness Dizziness Problem 04/07/2020 12:00:00 AM ED T MED[facility] ([facility] ) [id number] Panic disorder without agoraphobia Panic disorde r without agoraphobia Problem 02/28/2020 12:00:00 AM EDT [facility] ([facility] Surgeries/Procedures Procedure Description Date Indications Data Source(s) MRI BRAIN BRAIN STEM W/O CONTRAST MATERIAL 05/21/2020 12:00:00 AM EDT [facility] Magnetic Resonance Angiogtaphy Head W/O Contrast Material(S) 05/13/2020 12:00:00 AM EDT [facility] Magnetic Resonance Angiography Neck W/O Contrast Materials 05/13/2020 12:00:00 AM EDT [facility] ) ELECTROENCEPHALOGRAM W/REC AWAKE&ASLEEP 05/13/2020 12: 00:00 AM EDT [facility] ([facility] ELECTROENCEPHALOGRAM W/REC AWAKE&ASLEEP 05/13/2020 12: 00:00 AM EDT [facility] ([facility] ECHO TTHRC R-T 2D W/WOM-MODE COMPL SPEC&COLR DOP 04/30 12:00:00 AM EDT [facility] ([facility]) XTRNL PT ACTIVATED ECG RECORD MONITOR 30 DAYS 04/01/20 20 12:00:00 AM EDT [facility] ([facility]) XTRNL PT ACTIVTD ECG DWNLD 30 DAYS PHYS R&I 04/01/2020 12:00:00 AM EDT [facility] ([facility]) ECG ROUTINE ECG W/LEAST 12 LDS W/I&R 03/26/2020 12:00: 00 AM EDT [facility] ([facility]) Tympanometry & Acoustic Reflex Threshold Testing 03/05 12:00:00 AM EDT [facility] ([facility] Electrocardiogram Complete 03/05/2020 12:00:00 AM EDT [facility] ([facility] Results ID Date Data Source [id number] 08/20/2020 02:54:00 PM EST [facility] ([facility] Name Value Range Interpretation Code Description Data Makenzie rce(s) Supporting Document(s) Lipoprotein lipase [Enzymatic activity/volume] in Serum or Plasm a 35 U/L 13-78 [facility] ([facility] Erythrocyte sedimentation rate by Westergren method 2 mm/hr 0-15 [facility] ([facility] Amylase [Enzymatic activity/volume] in Serum or Plasma 75 U/L 31- 110 [facility] ([facility] ID Date Data Source [id number] 08/20/2020 02:54:00 PM EST [facility] ([facility] Name Value Range Interpretation Code Description Data Makenzie rce(s) Supporting Document(s) Glucose [Mass/volume] in Serum or Plasma 103 mg/dL 65-99 Above high normal [facility] ([facility] BUN 10 mg/dL 6-20 [facility] ([facility] Creatinine [Mass/volume] in Serum or Plasma 0.89 mg/dL 0.76-1.27 [facility] ([facility] eGFR If NonAfricn Am 117 mL/min/1.73 [facility] ([facility] eGFR If Africn Am 135 mL/min/1.73 [place] [facility] ([facility] Urea nitrogen/Creatinine [Mass Ratio] in Serum or Plasma 11 9 -20 [facility] ([facility] Sodium [Moles/volume] in Serum or Plasma 142 mmol/L 134-144 [facility] ([facility] Potassium [Moles/volume] in Serum or Plasma 3.9 mmol/L 3.5-5.2 [facility] ([facility] Calcium [Mass/volume] in Serum or Plasma 9.9 mg/dL 8.7-10.2 [facility] ([facility] Chloride [Moles/volume] in Serum or Plasma 102 mmol/L 96-106 [facility] ([facility] Carbon dioxide, total [Moles/volume] in Serum or Plasma 27 mmol/L 20 -29 [facility] ([facility] Globulin [Mass/volume] in Serum by calculation 2.3 g/dL 1.5-4.5 [facility] ([facility] Protein [Mass/volume] in Serum or Plasma 6.9 g/dL 6.0-8.5 [facility] ([facility] Albumin [Mass/volume] in Serum or Plasma 4.6 g/dL 4.1-5.2 [facility] ([facility] Albumin/Globulin [Mass Ratio] in Serum or Plasma 2.0 1.2-2.2 [facility] ([facility] Alkaline phosphatase [Enzymatic activity/volume] in Serum or Plasma 71 IU/L 39-117 [facility] Bilirubin.total [Mass/volume] in Serum or Plasma 0.9 mg/dL 0.0-1.2 [facility] ([facility] Aspartate aminotransferase [Enzymatic activity/volume] in Serum or Plasma 16 IU/L 0-40 [facility] Alanine aminotransferase [Enzymatic activity/volume] in Seru m or Plasma 12 IU/L 0-44 [facility] ([facility] ID Date Data Source [id number] 08/20/2020 02:54:00 PM EST MED[facility] ([facility] Name Value Range Interpretation Code Description Data Makenzie rce(s) Supporting Document(s) Leukocytes [#/volume] in Blood by Automated count 7.1 x10E3/uL 3.4-10 .8 [facility] ([facility] Hemoglobin [Mass/volume] in Blood 15.5 g/dL 13.0-17.7 [facility] ([facility] Erythrocytes [#/volume] in Blood by Automated count 4.85 x10E6/uL 4.1 4-5.80 [facility] ([facility] Erythrocyte mean corpuscular hemoglobin [Entitic mass] by Automated count 32.0 pg 26.6-33.0 [facility] ([facility] Erythrocyte mean corpuscular volume [Entitic volume] by Auto mated count 92 fL 79-97 [facility] ([facility] Hematocrit [Volume Fraction] of Blood by Automated count 44.7 % 3 7.5-51.0 [facility] ([facility] Erythrocyte distribution width [Ratio] by Automated count 11.8 % 11.6-15.4 [facility] ([facility] Platelets [#/volume] in Blood by Automated count 271 x10E3/uL 150-450 [facility] ([facility] Erythrocyte mean corpuscular hemoglobin concentration [Mass/volume] by Automated count 34.7 g/dL 31.5-35.7 [facility] ([facility] Neutrophils 72 % [facility] ([facility] Lymphs 19 % [facility] Basophils/100 leukocytes in Blood by Automated count 1 % [facility] ([facility] Eosinophils/100 leukocytes in Blood by Automated count 2 % [facility] ([facility] Monocytes/100 leukocytes in Blood by Automated count 6 % [facility] ([facility] Lymphocytes [#/volume] in Blood 1.4 x10E3/uL 0.7-3.1 [facility] ([facility] Monocytes [#/volume] in Blood 0.4 x10E3/uL 0.1-0.9 [facility] ([facility] Neutrophils [#/volume] in Blood by Automated count 5.1 x10E3/uL 1.4-7 .0 [facility] ([facility] Immature cells [#/volume] in Blood Laboratory test result [facility] ([facility] Eosinophils [#/volume] in Blood by Automated count 0.1 x10E3/uL 0.0-0 .4 [facility] ([facility] Basophils [#/volume] in Blood by Automated count 0.1 x10E3/uL 0.0-0.2 [facility] ([facility] Immature granulocytes [#/volume] in Blood by Automated count 0.0 x10E3/uL 0.0-0.1 [facility] Immature granulocytes/100 leukocytes in Blood by Automated count 0 % [facility] ([facility] Nucleated erythrocytes/100 leukocytes [Ratio] in Blood by Automated count Laboratory test result [facility] ([facility] Morphology [Interpretation] in Blood Narrative Laboratory test result [facility] ([facility] ID Date Data Source [id number] 05/09/2020 01:43:00 PM EDT MED[facility] ([facility] Name Value Range Interpretation Code Description Data Makenzie rce(s) Supporting Document(s) Thyrotropin [Units/volume] in Serum or Plasma 3.430 uIU/mL 0.450-4.50 0 [facility] ([facility] ID Date Data Source [id number] 03/05/2020 01:08:00 PM EDT MED[facility] ([facility] Name Value Range Interpretation Code Description Data Makenzie rce(s) Supporting Document(s) Thyrotropin [Units/volume] in Serum or Plasma 1.870 uIU/mL 0.450-4.50 0 [facility] ([facility] ID Date Data Source [id number] 03/05/2020 01:08:00 PM EDT MED[facility] ([facility] Name Value Range Interpretation Code Description Data Makenzie rce(s) Supporting Document(s) Glucose [Mass/volume] in Serum or Plasma 86 mg/dL 65-99 [facility] ([facility] Creatinine [Mass/volume] in Serum or Plasma 1.02 mg/dL 0.76-1.27 [facility] ([facility] BUN 13 mg/dL 6-20 [facility] eGFR If NonAfricn Am 100 mL/min/1.73 [facility] ([facility] Urea nitrogen/Creatinine [Mass Ratio] in Serum or Plasma 13 9 -20 [facility] ([facility] eGFR If Africn Am 116 mL/min/1.73 ME DENT ([facility] Sodium [Moles/volume] in Serum or Plasma 141 mmol/L 134-144 [facility] ([facility] Potassium [Moles/volume] in Serum or Plasma 4.7 mmol/L 3.5-5.2 [facility] ([facility] Chloride [Moles/volume] in Serum or Plasma 103 mmol/L 96-106 [facility] ([facility] Carbon dioxide, total [Moles/volume] in Serum or Plasma 25 mmol/L 20 -29 [facility] ([facility] Protein [Mass/volume] in Serum or Plasma 7.2 g/dL 6.0-8.5 [facility] ([facility] Albumin [Mass/volume] in Serum or Plasma 4.8 g/dL 4.1-5.2 [facility] ([facility] Calcium [Mass/volume] in Serum or Plasma 9.8 mg/dL 8.7-10.2 [facility] ([facility] Globulin [Mass/volume] in Serum by calculation 2.4 g/dL 1.5-4.5 [facility] ([facility] Bilirubin.total [Mass/volume] in Serum or Plasma 0.9 mg/dL 0.0-1.2 [facility] ([facility] Albumin/Globulin [Mass Ratio] in Serum or Plasma 2.0 1.2-2.2 [facility] ([facility] Alanine aminotransferase [Enzymatic activity/volume] in Seru m or Plasma 14 IU/L 0-44 [facility] ([facility] Aspartate aminotransferase [Enzymatic activity/volume] in Serum or Plasma 14 IU/L 0-40 [facility] ([facility] Alkaline phosphatase [Enzymatic activity/volume] in Serum or Plasma 67 IU/L 39-117 [facility] ([facility] ID Date Data Source [id number] 03/05/2020 01:08:00 PM EDT MED[facility] ([facility] Name Value Range Interpretation Code Description Data Makenzie rce(s) Supporting Document(s) Leukocytes [#/volume] in Blood by Automated count 6.4 x10E3/uL 3.4-10 .8 [facility] ([facility] Hemoglobin [Mass/volume] in Blood 16.7 g/dL 13.0-17.7 [facility] ([facility] Erythrocytes [#/volume] in Blood by Automated count 5.36 x10E6/uL 4.1 4-5.80 [facility] ([facility] Erythrocyte mean corpuscular volume [Entitic volume] by Auto mated count 95 fL 79-97 [facility] ([facility] Hematocrit [Volume Fraction] of Blood by Automated count 51.1 % 37.5-51.0 Above high normal [facility] ([facility] ) Erythrocyte mean corpuscular hemoglobin [Entitic mass] by Automated count 31.2 pg 26.6-33.0 [facility] ([facility] Erythrocyte mean corpuscular hemoglobin concentration [Mass/volume] by Automated count 32.7 g/dL 31.5-35.7 [facility] ([facility] Erythrocyte distribution width [Ratio] by Automated count 12.2 % 11.6-15.4 [facility] ([facility] Neutrophils 63 % [facility] ([facility] Lymphs 24 % [facility] Platelets [#/volume] in Blood by Automated count 300 x10E3/uL 150-450 [facility] ([facility] Basophils/100 leukocytes in Blood by Automated count 1 % [facility] ([facility] Eosinophils/100 leukocytes in Blood by Automated count 3 % [facility] ([facility] Monocytes/100 leukocytes in Blood by Automated count 9 % [facility] ([facility] Lymphocytes [#/volume] in Blood 1.5 x10E3/uL 0.7-3.1 [facility] ([facility] Immature cells [#/volume] in Blood Laboratory test result [facility] ([facility] Neutrophils [#/volume] in Blood by Automated count 4.1 x10E3/uL 1.4-7 .0 [facility] ([facility] Eosinophils [#/volume] in Blood by Automated count 0.2 x10E3/uL 0.0-0 .4 [facility] ([facility] Basophils [#/volume] in Blood by Automated count 0.0 x10E3/uL 0.0-0.2 [facility] ([facility] Monocytes [#/volume] in Blood 0.6 x10E3/uL 0.1-0.9 [facility] ([facility] Immature granulocytes [#/volume] in Blood by Automated count 0.0 x10E3/uL 0.0-0.1 [facility] ([facility] Nucleated erythrocytes/100 leukocytes [Ratio] in Blood by Automated count Laboratory test result MED[facility] ([facility] Immature granulocytes/100 leukocytes in Blood by Automated count 0 % [facility] ([facility] Morphology [Interpretation] in Blood Narrative Laboratory test result [facility] ([facility] ID Date Data Source [id number] 01/31/2020 04:46:00 PM EDT MED[facility] ([facility] Name Value Range Interpretation Code Description Data Makenzie rce(s) Supporting Document(s) Color Urine Laboratory test result M EDENT ([facility] Appearance of Urine Laboratory test result [facility] ([facility] Specific [place] 1.030 1.00-1.03 [facility] ([facility] PH Urine 6.5 5.0-8.0 [facility] Bilirubin.total [Presence] in Urine by Test strip Laboratory test res ult [facility] ([facility] Ketones Laboratory test result [facility] ([facility] Glucose Urine Laboratory test result MED[facility] ([facility] Blood Urine Laboratory test result M EDENT ([facility] Nitrite Laboratory test result MED[facility] ([facility] Protein Urine Laboratory test result MED[facility] ([facility] Urobilinogen 0.2 EU/dl 0.2-1.0 MEDENT ([facility] Leukocytes Laboratory test result ME DENT ([facility] ID Date Data Source [id number] 01/31/2020 04:46:00 PM EDT [facility] ([facility]) Name Value Range Interpretation Code Description Data Makenzie rce(s) Supporting Document(s) Appearance of Urine Laboratory test result [facility] ([facility]) Color Urine Laboratory test result MEDEN T ([facility]) Specific [place] 1.030 1.00-1.03 [facility]) PH Urine 6.5 5.0-8.0 [facility] Glucose Urine Laboratory test result [facility] ([facility]) Protein Urine Laboratory test result [facility] ([facility]) Bilirubin.total [Presence] in Urine by Test strip Laboratory test res ult MED[facility] ([facility]) Blood Urine Laboratory test result MEDEN T ([facility]) Ketones Laboratory test result [facility] ([facility]) Urobilinogen 0.2 EU/dl 0.2-1.0 [facility] ([facility]) Leukocytes Laboratory test result MEDENT ([facility]) Nitrite Laboratory test result [facility] ([facility]) ID Date Data Source [id number] 01/17/2020 04:11:00 PM EDT MEDENT ([facility] Name Value Range Interpretation Code Description Data Makenzie rce(s) Supporting Document(s) PH Urine 5.5 5.0-8.0 [facility] Color Urine Laboratory test result M EDENT ([facility] Specific [place] 1.030 1.00-1.03 MED[facility] ([facility] Appearance of Urine Laboratory test result MED[facility] ([facility] Ketones Laboratory test result MED[facility] ([facility] Glucose Urine Laboratory test result MED[facility] ([facility] Bilirubin.total [Presence] in Urine by Test strip Laboratory test res ult MED[facility] ([facility] Protein Urine Laboratory test result [facility] ([facility] Blood Urine Laboratory test result M EDENT ([facility] Urobilinogen 0.2 EU/dl 0.2-1.0 MED[facility] ([facility] Leukocytes Laboratory test result ME DENT ([facility] Nitrite Laboratory test result Above high normal MED[facility] ([facility] ID Date Data Source [id number] 01/17/2020 04:11:00 PM EDT [facility] Name Value Range Interpretation Code Description Data Makenzie rce(s) Supporting Document(s) Color Urine Laboratory test result MEDEN T ([facility]) PH Urine 5.5 5.0-8.0 [facility] Specific [place] 1.030 1.00-1.03 MED[facility] ([facility]i [facility]) Appearance of Urine Laboratory test result [facility] ([facility]) Glucose Urine Laboratory test result [facility] ([facility]) Ketones Laboratory test result [facility] ([facility]) Blood Urine Laboratory test result MEDEN T ([facility]) Bilirubin.total [Presence] in Urine by Test strip Laboratory test res ult MED[facility] ([facility]) Nitrite Laboratory test result [facility] ([facility]) Protein Urine Laboratory test result [facility] ([facility]) Urobilinogen 0.2 EU/dl 0.2-1.0 [facility] ([facility]) Leukocytes Laboratory test result MEDENT ([facility]) Procedure Social History Code Duration Value Status Description Data Source(s ) Smoking 05/01/2020 12:00:00 AM EDT Patient is a former smoker completed Patient is a former smoker [facility] ([facility] ) Smoking 03/26/2020 12:00:00 AM EDT Patient is a former smoker completed Patient is a former smoker [facility] ([facility]) Vital Signs ID Date Data Source [id number] Name Value Range Interpretation Code Description Data Source(s) Oxygen saturation in Arterial blood by Pulse oximetry 98 % 98 % [facility] ([facility] Body mass index (BMI) [Ratio] 22.3 kg/m2 22.3 k g/m2 [facility] ([facility] [place] body weight 154 [lb_av] 154 [lb_av] MEDEN T ([facility] Body weight 147.00 [lb_av] 147.00 [lb_av] MEDEN T ([facility] Body height 68 [in_i] 68 [in_i] [facility] ([facility] 5'8" Respiratory rate 16 /min 16 /min MED[facility] ( [facility] Heart rate 76 /min 76 /min [facility] ([facility] Body temperature 98.2 [degF] 98.2 [degF] [facility] ([facility] Diastolic blood pressure 80 mm[Hg] 80 mm[Hg] [facility] ([facility] Systolic blood pressure 116 mm[Hg] 116 mm[Hg] M EDENT ([facility] Oxygen saturation in Arterial blood by Pulse oximetry 98 % 98 % [facility] ([facility] Body mass index (BMI) [Ratio] 22.5 kg/m2 22.5 k g/m2 [facility] ([facility] [place] body weight 154 [lb_av] 154 [lb_av] MEDEN T ([facility] Body weight 148.00 [lb_av] 148.00 [lb_av] MEDEN T ([facility] Body height 68 [in_i] 68 [in_i] [facility] ([facility] 5'8" Respiratory rate 16 /min 16 /min [facility] ( [facility] Heart rate 68 /min 68 /min [facility] ([facility] Body temperature 98.7 [degF] 98.7 [degF] [facility] ([facility] Diastolic blood pressure 80 mm[Hg] 80 mm[Hg] [facility] ([facility] Systolic blood pressure 114 mm[Hg] 114 mm[Hg] M EDENT ([facility] Oxygen saturation in Arterial blood by Pulse oximetry 98 % 98 % [facility] ([facility] Body mass index (BMI) [Ratio] 22.3 kg/m2 22.3 k g/m2 [facility] ([facility] [place] body weight 154 [lb_av] 154 [lb_av] MEDEN T ([facility] Body weight 147.00 [lb_av] 147.00 [lb_av] MEDEN T ([facility] Body height 68 [in_i] 68 [in_i] [facility] ([facility] 5'8" Respiratory rate 16 /min 16 /min [facility] ( [facility] Heart rate 66 /min 66 /min [facility] ([facility] Body temperature 98.6 [degF] 98.6 [degF] [facility] ([facility] Diastolic blood pressure 78 mm[Hg] 78 mm[Hg] [facility] ([facility] Systolic blood pressure 112 mm[Hg] 112 mm[Hg] M EDENT ([facility] Oxygen saturation in Arterial blood by Pulse oximetry 98 % 98 % [facility] ([facility] Body mass index (BMI) [Ratio] 22.8 kg/m2 22.8 k g/m2 [facility] ([facility] [place] body weight 154 [lb_av] 154 [lb_av] MEDEN T ([facility] Body weight 150.00 [lb_av] 150.00 [lb_av] MEDEN T ([facility] Body height 68 [in_i] 68 [in_i] [facility] ([facility] 5'8" Respiratory rate 54 /min 54 /min MED[facility] ( [facility] Heart rate 5 /min 5 /min [facility] ([facility] Body temperature 97.0 [degF] 97.0 [degF] [facility] ([facility] Diastolic blood pressure 68 mm[Hg] 68 mm[Hg] [facility] ([facility] Systolic blood pressure 128 mm[Hg] 128 mm[Hg] M EDENT ([facility] Oxygen saturation in Arterial blood by Pulse oximetry 98 % 98 % [facility] ([facility] Body mass index (BMI) [Ratio] 22.7 kg/m2 22.7 k g/m2 [facility] ([facility] [place] body weight 154 [lb_av] 154 [lb_av] MEDEN T ([facility] Body weight 149.00 [lb_av] 149.00 [lb_av] MEDEN T ([facility] Body height 68 [in_i] 68 [in_i] [facility] ([facility] 5'8" Respiratory rate 16 /min 16 /min MED[facility] ( [facility] Heart rate 94 /min 94 /min [facility] ([facility] Body temperature 97.6 [degF] 97.6 [degF] MED[facility] ([facility] Diastolic blood pressure 72 mm[Hg] 72 mm[Hg] [facility] ([facility] Systolic blood pressure 116 mm[Hg] 116 mm[Hg] M EDENT ([facility] Body mass index (BMI) [Ratio] 23.5 kg/m2 23.5 k g/m2 MEDENT ([facility], ) Body weight 150.00 [lb_av] 150.00 [lb_av] MEDEN T ([facility], ) Body height 67 [in_i] 67 [in_i] MEDENT ([facility], ) 5'7" Respiratory rate 12 /min 12 /min MEDENT ( [facility], ) Diastolic blood pressure--sitting 53 mm[Hg] 53 mm[Hg] [facility] ([facility]) [place], adult cuff/Ra Systolic blood pressure--sitting 111 mm[Hg] 111 mm[Hg] [facility] ([facility]) [place], adult cuff/Ra Heart rate 51 /min 51 /min [facility] ([facility]) Body mass index (BMI) [Ratio] 22.0 kg/m2 22.0 k g/m2 [facility] ([facility]) Body height 69 [in_i] 69 [in_i] [facility] ([facility]) 5'9" Body weight 149.00 [lb_av] 149.00 [lb_av] MEDEN T ([facility]) Oxygen saturation in Arterial blood by Pulse oximetry 97 % 97 % [facility] ([facility] Body mass index (BMI) [Ratio] 22.5 kg/m2 22.5 k g/m2 [facility] ([facility] Body weight 148.00 [lb_av] 148.00 [lb_av] MEDEN T ([facility] Body height 68 [in_i] 68 [in_i] [facility] ([facility] 5'8" Respiratory rate 16 /min 16 /min [facility] ( [facility] Heart rate 62 /min 62 /min [facility] ([facility] Body temperature 97.3 [degF] 97.3 [degF] [facility] ([facility] Diastolic blood pressure 74 mm[Hg] 74 mm[Hg] [facility] ([facility] Systolic blood pressure 106 mm[Hg] 106 mm[Hg] M EDENT ([facility] Diastolic blood pressure--standing 82 mm[Hg] 8 2 mm[Hg] [facility] ([facility] p-78 Systolic blood pressure--standing 130 mm[Hg] 13 0 mm[Hg] [facility] ([facility] p-78 Diastolic blood pressure--sitting 74 mm[Hg] 74 mm[Hg] [facility] ([facility] p-70 Body mass index (BMI) [Ratio] 22.5 kg/m2 22.5 k g/m2 [facility] ([facility] Body weight 148.00 [lb_av] 148.00 [lb_av] MEDEN T ([facility] Body height 68 [in_i] 68 [in_i] [facility] ([facility] 5'8" Respiratory rate 16 /min 16 /min [facility] ( [facility] Heart rate 72 /min 72 /min [facility] ([facility] Body temperature 98.5 [degF] 98.5 [degF] [facility] ([facility] Diastolic blood pressure 68 mm[Hg] 68 mm[Hg] [facility] ([facility] Systolic blood pressure 116 mm[Hg] 116 mm[Hg] M EDENT ([facility] Systolic blood pressure--sitting 116 mm[Hg] 116 mm[Hg] [facility] ([facility] p-70 Diastolic blood pressure--supine 68 mm[Hg] 68 mm[Hg] [facility] ([facility] p-68 Systolic blood pressure--supine 116 mm[Hg] 116 mm[Hg] MED[facility] ([facility] p-68 Oxygen saturation in Arterial blood by Pulse oximetry 98 % 98 % [facility] ([facility] Oxygen saturation in Arterial blood by Pulse oximetry 98 % 98 % [facility] ([facility] ([place]), (Room Air) Body mass index (BMI) [Ratio] 23.1 kg/m2 23.1 k g/m2 [facility] ([facility] Body weight 152.00 [lb_av] 152.00 [lb_av] MEDEN T ([facility] Body height 68 [in_i] 68 [in_i] [facility] ([facility] 5'8" Respiratory rate 16 /min 16 /min [facility] ( [facility] Heart rate 78 /min 78 /min [facility] ([facility] [facility] Body temperature 98.2 [degF] 98.2 [degF] [facility] ([facility] Diastolic blood pressure 70 mm[Hg] 70 mm[Hg] [facility] ([facility] Systolic blood pressure 100 mm[Hg] 100 mm[Hg] M EDENT ([facility] Body temperature 98.1 [degF] 98.1 [degF] [facility] ([facility] Diastolic blood pressure 60 mm[Hg] 60 mm[Hg] [facility] ([facility] Systolic blood pressure 108 mm[Hg] 108 mm[Hg] M EDENT ([facility] Oxygen saturation in Arterial blood by Pulse oximetry 97 % 97 % [facility] ([facility] (AT Rest), (Room Air) Body mass index (BMI) [Ratio] 23.1 kg/m2 23.1 k g/m2 [facility] ([facility] Body weight 152.00 [lb_av] 152.00 [lb_av] MEDEN T ([facility] Body height 68 [in_i] 68 [in_i] [facility] 5'8" Respiratory rate 16 /min 16 /min MEDENT ( [facility] Heart rate 78 /min 78 /min [facility] ([facility] Oxygen saturation in Arterial blood by Pulse oximetry 97 % 97 % MED[facility] ([facility] (AT Rest), (Room Air) Body mass index (BMI) [Ratio] 23.0 kg/m2 23.0 k g/m2 MED[facility] ([facility] Body weight 151.00 [lb_av] 151.00 [lb_av] MEDEN T ([facility] Body height 68 [in_i] 68 [in_i] [facility] 5'8" Respiratory rate 16 /min 16 /min MEDENT ( [facility] Heart rate 72 /min 72 /min [facility] ([facility] Body temperature 98.2 [degF] 98.2 [degF] MEDENT ([facility] Diastolic blood pressure 60 mm[Hg] 60 mm[Hg] MEDENT ([facility] Systolic blood pressure 98 mm[Hg] 98 mm[Hg] M EDENT ([facility] Diastolic blood pressure 66 mm[Hg] 66 mm[Hg] [facility] Systolic blood pressure 130 mm[Hg] 130 mm[Hg] e CW1 ([facility]) Body temperature 98.2 [degF] 98.2 [degF] eCW1 ( [facility]) Respiratory rate 18 /min 18 /min eCW1 ([facility]) Heart rate 68 /min 68 /min eCW1 ([facility]) Body mass index (BMI) [Ratio] 22.96 kg/m2 22.96 kg/m2 eCW1 ([facility]) Body height [in_us] eCW1 ([facility]) Body weight Measured 151 [lb_av] 151 [lb_av] eC W1 ([facility]) Patient Treatment Plan of Care Planned Activity Planned Date Details Description Data Source (s) Ciprofloxacin 500 MG Oral Tablet [Cipro] 01/16/2020 12:00:00 AM EDT eCW1 ([facility])
--- OUTSIDE RECORDS SUMMARY | 2020-09-29 05:56 | CCD | Continuity of Care Document ---
Author Author Prasanna SHEPARD D.O. Organization Unknown Address 3 [facility] [address] [place] [address] Phone [phone] Problems Active Problems Provider Date Panic disorder without agoraphobia Adilson Shepard D.O., SEAN AFP Onset: 02/28/2020 Gastroesophageal reflux disease Emily Beaulieu PA Onset: 08/20/2020 Social History Type Date Description Comments Sex Unknown ETOH Use Rarely consumes liquor Tobacco Use Start: Unknown End: Unknown Patient is a former smoker QUIT 09/2019 Recreational Drug Use Denies Drug Use Smoking Status Reviewed: 05/01/20 Patient is a former smoker QU IT 09/2019 Allergies, Adverse Reactions, Alerts Description No Known Drug Allergies Medications Active Medications SIG Qnty Indications Ordering Provide r Date Flagyl 500mg Tablets one tab by mouth twice a day x 7 days. no etoh 14tabs Nancie Rodriguez, FAA 08/20/[address] 1 by mouth once daily 30caps Adilson Shepard D.O., FAA Fluoxetine HCL 20mg Capsules 1 by mouth every day 30caps Adilson Shepard D.O., FAAFP History Medications No Active Medications Unknown 06/2020 - 05/09/2020 Fluoxetine HCL 10mg Capsules 1 by mouth every day 90caps Adilson Shepard D.O., FAAFP 06/2020 - 08/20/2020 Lexapro 10mg Tablets 1 by mouth every day 30tabs Adilson Shepard D.O., FAAFP 04/23/2020 - 05/09/2020 Meclizine HCL 25mg Chewtabs one tab po daily 14units Adilson Shepard D.O., FAAFP 03/2020 - 05/09/2020 Immunizations Description No Information Available Vital Signs Date Vital Result Comment 08/20/2020 1:59pm BP Systolic 116 mmHg BP Diastolic 80 mmHg Body Temperature 98.2 F Heart Rate 76 /min Respiratory Rate 16 /min Height 68 inches 5'8" Weight 147.00 lb [place] Body Weight 154 lb BMI (Body Mass Index) 22.3 kg/m2 O2 % BldC Oximetry 98 % 06/12/2020 2:49pm BP Systolic 114 mmHg BP Diastolic 80 mmHg Body Temperature 98.7 F Heart Rate 68 /min Respiratory Rate 16 /min Height 68 inches 5'8" Weight 148.00 lb [place] Body Weight 154 lb BMI (Body Mass Index) 22.5 kg/m2 O2 % BldC Oximetry 98 % Results Test Acquired Date Facility Test Result H/L Range Note CBC With Differential/Platelet 08/20/2020 [facility] WBC 7.1 x10E3/uL 3.4-10.8 RBC 4.85 x10E6/uL 4.14-5.80 Hemoglobin 15.5 g/dL 13.0-17.7 Hematocrit 44.7 % 37.5-51.0 MCV 92 fL 79-97 MCH 32.0 pg 26.6-33.0 MCHC 34.7 g/dL 31.5-35.7 RDW 11.8 % 11.6-15.4 Platelets 271 x10E3/uL 150-450 Neutrophils 72 % Not Estab. Lymphs 19 % Not Estab. Monocytes 6 % Not Estab. Eos 2 % Not Estab. Basos 1 % Not Estab. Immature Cells TNP Neutrophils (Absolute) 5.1 x10E3/uL 1.4-7.0 Lymphs (Absolute) 1.4 x10E3/uL 0.7-3.1 Monocytes(Absolute) 0.4 x10E3/uL 0.1-0.9 Eos (Absolute) 0.1 x10E3/uL 0.0-0.4 Baso (Absolute) 0.1 x10E3/uL 0.0-0.2 Immature Granulocytes 0 % Not Estab. Immature Grans (Abs) 0.0 x10E3/uL 0.0-0.1 NRBC TNP Hematology Comments: TNP Metabolic Panel (14), Comprehensive 08/20/2020 [facility] [place] Glucose 103 mg/dL High 65-99 BUN 10 mg/dL 6-20 Creatinine 0.89 mg/dL 0.76-1.27 eGFR If NonAfricn Am 117 mL/min/1.73 >59 eGFR If Africn Am 135 mL/min/1.73 >59 BUN/Creatinine Ratio 11 9-20 Sodium 142 mmol/L 134-144 Potassium 3.9 mmol/L 3.5-5.2 Chloride 102 mmol/L 96-106 Carbon Dioxide, Total 27 mmol/L 20-29 Calcium 9.9 mg/dL 8.7-10.2 Protein, Total 6.9 g/dL 6.0-8.5 Albumin 4.6 g/dL 4.1-5.2 Globulin, Total 2.3 g/dL 1.5-4.5 A/G Ratio 2.0 1.2-2.2 Bilirubin, Total 0.9 mg/dL 0.0-1.2 Alkaline Phosphatase 71 IU/L 39-117 Ast (Sgot) 16 IU/L 0-40 Alt (SGPT) 12 IU/L 0-44 Laboratory test finding 08/20/2020 [facility] [place] Sedimentation Rate-Westergren 2 mm/hr 0-15 Amylase 75 U/L 31-110 Lipase 35 U/L 13-78 Laboratory test finding 05/09/2020 [facility] [place] TSH 3.430 uIU/mL 0.450-4.500 CBC With Differential/Platelet 03/05/2020 [facility] E WBC 6.4 x10E3/uL 3.4-10.8 RBC 5.36 x10E6/uL 4.14-5.80 Hemoglobin 16.7 g/dL 13.0-17.7 Hematocrit 51.1 % High 37.5-51.0 MCV 95 fL 79-97 MCH 31.2 pg 26.6-33.0 MCHC 32.7 g/dL 31.5-35.7 RDW 12.2 % 11.6-15.4 Platelets 300 x10E3/uL 150-450 Neutrophils 63 % Not Estab. Lymphs 24 % Not Estab. Monocytes 9 % Not Estab. Eos 3 % Not Estab. Basos 1 % Not Estab. Immature Cells TNP Neutrophils (Absolute) 4.1 x10E3/uL 1.4-7.0 Lymphs (Absolute) 1.5 x10E3/uL 0.7-3.1 Monocytes(Absolute) 0.6 x10E3/uL 0.1-0.9 Eos (Absolute) 0.2 x10E3/uL 0.0-0.4 Baso (Absolute) 0.0 x10E3/uL 0.0-0.2 Immature Granulocytes 0 % Not Estab. Immature Grans (Abs) 0.0 x10E3/uL 0.0-0.1 NRBC TNP Hematology Comments: TNP Metabolic Panel (14), Comprehensive 03/05/2020 [facility] [place] Glucose 86 mg/dL 65-99 BUN 13 mg/dL 6-20 Creatinine 1.02 mg/dL 0.76-1.27 eGFR If NonAfricn Am 100 mL/min/1.73 >59 eGFR If Africn Am 116 mL/min/1.73 >59 BUN/Creatinine Ratio 13 9-20 Sodium 141 mmol/L 134-144 Potassium 4.7 mmol/L 3.5-5.2 Chloride 103 mmol/L 96-106 Carbon Dioxide, Total 25 mmol/L 20-29 Calcium 9.8 mg/dL 8.7-10.2 Protein, Total 7.2 g/dL 6.0-8.5 Albumin 4.8 g/dL 4.1-5.2 Globulin, Total 2.4 g/dL 1.5-4.5 A/G Ratio 2.0 1.2-2.2 Bilirubin, Total 0.9 mg/dL 0.0-1.2 Alkaline Phosphatase 67 IU/L 39-117 Ast (Sgot) 14 IU/L 0-40 Alt (SGPT) 14 IU/L 0-44 Laboratory test finding 03/05/2020 [facility] [place] TSH 1.870 uIU/mL 0.450-4.500 Procedures Date Code Description Status 03/05/2020 20081 Electrocardiogram Complete Compl eted 03/05/2020 61783 Tympanometry & Acoustic Reflex T hreshold Testing Completed Medical Devices Description No Information Available Encounters Type Date Location Provider Dx Diagnosis Office Visit 08/20/2020 2:00p [facility] Teo Beaulieu PA R10.84 Generalized abdominal pain R19.7 Diarrhea, unspecified R19.5 Other fecal abnormalities R11.0 Nausea Office Visit 06/12/2020 2:45p [facility] Mara Rodriguez, FAAFP F41.0 Panic disorder [episodic paroxysmal anxi ety] Office Visit 06/06/2020 9:00a [facility] Teo Beaulieu, PA F41.9 Anxiety disorder, unspecified Office Visit 05/09/2020 1:00p [facility] Teo Beaulieu, PA F41.9 Anxiety disorder, unspecified R07.89 Other chest pain F41.0 Panic disorder [episodic par oxysmal anxiety] Office Visit 04/23/2020 11:30a [facility] Teo Beaulieu, PA F41.9 Anxiety disorder, unspecified Office Visit 03/19/2020 8:30a [facility] Emily Beaulieu, PA R42 Dizziness and giddiness Office Visit 03/05/2020 10:40a [facility] Emily Beaulieu PA R42 Dizziness and giddiness Office Visit 02/28/2020 3:00p [facility] Mara Rodriguez, FAAFP F41.0 Panic disorder [episodic paroxysmal anxi ety] Assessments Date Code Description Provider 08/20/2020 R10.84 Generalized abdominal pain Emily Ruelas, PA 08/20/2020 R19.7 Diarrhea Jay Beaulieu, PA 08/20/2020 R19.5 Other fecal abnormalities [place] Emily bolden PA 08/20/2020 R11.0 Nausea Jay Beaulieu, PA 06/12/2020 F41.0 Panic disorder [episodic paroxys mal anxiety] Adilson Shepard D.O., FAAFP 06/06/2020 F41.9 Anxiety state Jay Beaulieu, PA 05/09/2020 F41.9 Anxiety state Jay Beaulieu, PA 05/09/2020 R07.89 Other chest pain Sa sin Beaulieu PA 05/09/2020 F41.0 Panic disorder [episodic paroxys mal anxiety] Emily Beaulieu, PA 04/23/2020 F41.9 Anxiety state Jay Beaulieu PA 03/19/2020 R42 Dizziness and giddiness Emily Gonsales PA 03/05/2020 R42 Dizziness and giddiness Emily Gonsales PA 02/28/2020 F41.0 Panic disorder [episodic paroxys mal anxiety] Adilson Shepard D.O., ALESSIA Plan of Treatment Future Appointment(s):* 08/27/2020 1:00 pm - Emily Beaulieu PA at [facility] * 09/16/2020 1:45 pm - Adilson Shepard D.O., ALESSIA at [facility] Functional Status Description No Information Available Mental Status Description No Information Available Referrals Refer to Reason for Referral Status Appt Date Anthony Lockwood and treat for constant dizziness x 2 weeks. Pt went to ER for issue and head CT neg. EKG in office NSR, Tympanogram wnl, orthostats unremarkable, pending CBC, CMP, TSH. Denies tinnitus. Sent 04/07/2020 [facility] [address] [place], [place] [address] [phone]
--- OUTSIDE RECORDS SUMMARY | 2020-09-29 05:56 | CCD | Continuity of Care Document ---
Author Author Prasanna BEAULIEU VA Organization Unknown Address 3 [facility] 3 [place] [address] Phone [phone] Problems Active Problems Provider Date Panic disorder without agoraphobia Adilson Huynh D.O., SEAN STEVENSON Onset: 02/28/2020 Social History Type Date Description Comments Sex [...] 7 days. no etoh 14tabs Nancie Rodriguez, [facility] 08/20/[address] 1 by mouth once daily 30caps Adilson Huynh D.O., [facility] Fluoxetine HCL 20mg Capsules 1 by mouth every day 30caps Adilson Huynh D.O., [facility] History Medications No Active Medications Unknown 06/2020 - 05/09/2020 Fluoxetine HCL 10mg Capsules 1 by mouth every day 90caps Adilson Huynh D.O., FAAFP 06/2020 - 08/20/2020 Lexapro 10mg Tablets 1 by mouth every day 30tabs Adilson Huynh D.O., FAAFP 04/23/2020 - 05/09/2020 Meclizine HCL 25mg Chewtabs one tab po daily 14units Adilson Huynh D.O., FAAFP 03/2020 - 05/09/2020 Immunizations Description No Information Available Vital Signs Date Vital Result Comment 08/20/2020 1:59pm BP Systolic 116 mmHg BP Diastolic 80 mmHg Body Temperature 98.2 F Heart Rate 76 /min Respiratory Rate 16 /min Height 68 inches 5'8" Weight 147.00 lb [place] Body Weight 154 lb BMI (Body Mass Index) 22.3 kg/m2 O2 % BldC Oximetry 98 % 06/12/2020 2:49pm BP Systolic 114 mmHg BP Diastolic 80 mmHg Body Temperature 98.7 F Heart Rate 68 /min Respiratory Rate 16 /min Height 68 inches 5'8" Weight 148.00 lb [place] Body Weight 154 lb BMI (Body Mass Index) 22.5 kg/m2 O2 % BldC Oximetry 98 % Results Test Acquired Date Facility Test Result H/L Range Note Laboratory test finding 05/09/2020 [facility] [place] TSH [...] 0.450-4.500 Procedures Date Code Description Status 03/05/2020 42418 Electrocardiogram Complete Compl eted 03/05/2020 94696 Tympanometry & Acoustic Reflex T hreshold Testing Completed Medical Devices Description No Information Available Encounters Type Date Location Provider Dx Diagnosis Office Visit 06/12/2020 2:45p [place] [facility] Mara Rodriguez, FAAFP F41.0 Panic disorder [episodic paroxysmal anxi ety] Office Visit 06/06/2020 9:00a [place] [facility] Teo Beaulieu PA F41.9 Anxiety disorder, unspecified Office Visit 05/09/2020 1:00p [place] [facility] Teo Beaulieu PA F41.9 Anxiety disorder, unspecified R07.89 Other chest pain F41.0 Panic disorder [episodic par oxysmal anxiety] Office Visit 04/23/2020 11:30a [place] [facility] Teo Beaulieu PA F41.9 Anxiety disorder, unspecified Office Visit 03/19/2020 8:30a [place] [facility] Emily Beaulieu PA R42 Dizziness and giddiness Office Visit 03/05/2020 10:40a [place] [facility] Emily Beaulieu, LUKAS R42 Dizziness and giddiness Office Visit 02/28/2020 3:00p [place] [facility] Mara Rodriguez, ROGERFP F41.0 Panic disorder [episodic paroxysmal anxi ety] Assessments Date Code Description Provider 06/12/2020 F41.0 Panic disorder [episodic paroxys mal anxiety] Adilson Huynh D.O., FAAFP 06/06/2020 F41.9 Anxiety state Jay Beaulieu, PA 05/09/2020 F41.9 Anxiety state Jay Beaulieu, PA 05/09/2020 R07.89 Other chest pain Sa sin Beaulieu, PA 05/09/2020 F41.0 Panic disorder [episodic paroxys mal anxiety] Emily Beaulieu, PA 04/23/2020 F41.9 Anxiety state Jay Beaulieu, PA 03/19/2020 R42 Dizziness and giddiness Emily Gonsales, PA 03/05/2020 R42 Dizziness and giddiness Dandreo Emily montes, PA 02/28/2020 F41.0 Panic disorder [episodic paroxys mal anxiety] Adilson Huynh D.O., ALESSIA Plan of Treatment Future Appointment(s):* 09/16/2020 1:45 pm - Adilson Huynh D.O., ALESSIA at [facility] Functional Status Description No Information Available Mental Status Description No Information Available Referrals Refer to Reason for Referral Status Appt Date Ali, Anthony eval and treat for constant dizziness x 2 weeks. Pt went to ER for issue and head CT neg. EKG in office NSR, Tympanogram wnl, orthostats unremarkable, pending CBC, CMP, TSH. Denies tinnitus. Sent 04/07/2020 [facility] [address] [address] [phone]
[2020-09-29] MEDS ORDERED: FLUO20CA22 (05:57)
[2020-09-29] MEDS ORDERED: NS 1,000 ML IV ONE (07:00)
--- OUTSIDE RECORDS SUMMARY | 2020-09-29 07:26 | CCD ---
Author Author [facility] Organization [facility] Address Unknown Phone Unavailable Care Team Providers Care Cushion Filler Name Role Phone Lila HUDSON MD Unavailable Unavailable ANTECOLLila MD Unavailable Unavailable [...] Fish, J Adilson Unavailable Unavailable Fish, J Aidlson Unavailable Unavailable Fish, J Adilson Unavailable Unavailable [...] is protected by Article 27-F of the [facility] Public Health law. If you continue you may have access to information: Regarding HIV / AIDS; Provided by facilities licensed or operated by the [facility] Office of Mental Health; or Provided by the [facility] Office for People With Developmental Disabilities. If such information is present, then the following [facility] mandated warning applies: This information has [...] law may result in a fine or long-term sentence or both. A general authorization for [...] Data Source(s) Unknown Unknown Problem MEDENT ([facility]) Encounters Encounter Providers Location Date Indications Data Source(s ) O Attender: Selam GAYTAN 09/16/19 01:06:50 PM EST - 09/16/2020 01:58:53 PM EST DocuTap ([facility] ) Outpatient Attender: Emily GAYTAN [facility] ce 08/20/2020 01:00:00 PM EST [facility] Outpatient Attender: Adilson Huynh [facility] 06/12/2020 02:45:0 0 PM EDT [facility] ([facility] Outpatient Attender: Emily GAYTAN [facility] ce 06/06/2020 09:00:00 AM EDT [facility] Outpatient Attender: Emily GAYTAN [facility] 05/09/2020 01:00:00 PM EDT [facility] Outpatient Attender: Emily GAYTAN [facility] ce 04/23/2020 11:30:00 AM EDT MED[facility] ([facility] Outpatient Attender: MIKAYLA HUDSON MD Main Office 03/26/2020 03:30:00 PM EDT MEDENT ([facility]) Outpatient Attender: Emily GAYTAN [facility] ce 03/19/2020 08:30:00 AM EDT [facility] ([facility] Outpatient Attender: Emily GAYTAN [facility] ce 03/05/2020 10:40:00 AM EDT MEDENT [facility] 03:00:0 0 PM EDT MEDENT ([facility] Outpatient Att[facility]: [facility] 01/31/2020 03:00:0 0 PM EDT MEDENT ([facility] Outpatient Attender: [facility] 01/17/2020 03:00:0 0 PM EDT MEDENT ([facility] [address] [facility] [address] 01/16/2020 12:00:00 AM EDT eCW1 ([facility]) Outpatient Referrer: ROMERO GAYTAN 11/01/2019 01:57:00 PM [...] 12:00 :00 AM EST ORAL active MEDENT ([facility] Metronidazole 500 MG Oral Tablet METRONIDAZOLE 08/20/2020 12:0 0:00 AM EST tablet 14 TAKE ONE TABLET BY MOUTH TWO SELAM ES A DAY FOR 7 DAYS ..NO ALCOHOL TAKE ONE TABLET BY MOUTH TWO TIMES A DAY FOR 7 DAYS ..NO ALCOHOL SOLD: 08/25/2020 [facility] Omeprazole 20 MG Delayed Release Oral Capsule Omeprazole 08/20/2020 12:00:00 AM EST ORAL active MEDENT ([facility] Fluoxetine 20 MG Oral Capsule Fluoxetine HCL 08/20/2020 12:00:[address] ORAL active MEDENT ([facility] 20 mg 08/20/2020 12:00:00 AM [...] Medications 05/09/2020 12:00:00 AM EDT completed MEDENT ([facility] Fluoxetine 10 MG Oral Capsule Fluoxetine HCL 05/09/2020 12:00:00 AM E DT ORAL completed MEDENT ([facility] Escitalopram 10 MG Oral Tablet ESCITALOPRAM OXALATE 04/23/2020 1 2:00:00 AM EDT tablet 30 TAKE ONE TABLET BY MOUTH EVERY D AY TAKE ONE TABLET BY MOUTH EVERY DAY SOLD: 04/23/2020 [facility] Escitalopram 10 MG Oral Tablet [Lexapro] Lexapro 04/23/2020 12:00: 00 AM EDT ORAL completed MEDENT ([facility] buspirone hydrochloride 5 MG Oral Tablet Buspirone HCL 03/25/2020 12:00:00 AM EDT ORAL active MEDENT ([facility]) 25 mg 03/06/2020 12:00:00 AM EDT tablet 14 TAKE ONE TABLET BY MOUTH ONCE DAILY TAKE ONE TABLET BY MOUTH ONCE DAILY SOLD: 03/11/2020 [facility] Meclizine Hydrochloride 25 MG Chewable Tablet Meclizine HCL 03/05/2020 12:00:00 AM EDT ORAL completed MEDENT ([facility] 10 mg 02/25/2020 12:00:00 [...] 12:00:00 AM EDT active 1 tablet eCW1 ([facility]) 500 mg 01/16/2020 12:00:00 AM EDT [...] A S NEEDED FOR PAIN SOLD: 10/29/2019 [facility] 875 mg 10/15/2019 12:00:00 AM EST tablet 20 TAKE ONE TABLET BY MOUTH TWICE A DAY FOR 10 DAYS TAKE ONE TABLET BY MOUTH TWICE A DAY FOR 10 DAYS SOLD: 10/15/2019 [facility] Insurance Providers Payer name Policy type / Coverage type Policy ID Covered democrat ID Covered democrat's relationship to ford Policy [employer] Plan Information [facility] [id number] SP [id number] [employer]PLIC[employer]) emp [id number] Employee [id number] [place] [employer] [id number] Self [id number] [facility](MCAID) O [id number] S [id number] PIYUSH [id number] SP [id number] MEDICAID [id number] SP [id number] SELF PAY ONLY [id number] SP [id number] UNAVAILABLE UNAVAILA BLE ANSI-Commercial [id number] MEDICAID M [id number] S [id number] [facility] [id number] SP [id number] SELF PAY UNAVAILABLE SP UNAVAILA BLE [facility] Health Maintenance Organization (HMO) Self [id number] MEDICAID - CLINIC [id number] [facility] BL[facility] [id number] [employer] [id number] SP [id number] [facility] [place] [id number] SP [id number] [facility] PONCE PLAN [id number] SP [id number] [facility] Self Problems, Conditions, and Diagnoses Code Display Name Description Problem Type Effective Dates Data Source(s) [id number] Gastroesophageal reflux disease Gastroesophageal reflux disease Problem 08/20/2020 12:00:00 AM EST MEDENT ([facility] [id number] Near syncope Near syncope Problem 04/07/2020 12:00:00 A M EDT MEDENT ([facility], ) [id number] Dizziness Dizziness Problem 04/07/2020 12:00:00 AM ED T MEDENT ([facility], ) [id number] Panic disorder without agoraphobia Panic disorde r without agoraphobia Problem 02/28/2020 12:00:00 AM EDT MEDENT ([facility] Surgeries/Procedures Procedure Description Date Indications Data Source(s) MRI BRAIN BRAIN STEM W/O CONTRAST MATERIAL 05/21/2020 12:00:00 AM EDT MEDENT ([facility], ) Magnetic Resonance Angiogtaphy Head W/O Contrast Material(S) 05/13/2020 12:00:00 AM EDT MEDENT ([facility], ) Magnetic Resonance Angiography Neck W/O Contrast Materials 05/13/2020 12:00:00 AM EDT MEDENT ([facility], ) ELECTROENCEPHALOGRAM W/REC AWAKE&ASLEEP 05/13/2020 12: 00:00 AM [facility] ELECTROENCEPHALOGRAM W/REC AWAKE&ASLEEP 05/13/2020 12: 00:00 AM EDT MEDENT ([facility], ) ECHO TTHRC R-T 2D W/WOM-MODE COMPL SPEC&COLR DOP 04/30 12:00:00 AM EDT MEDENT ([facility]) XTRNL PT ACTIVATED ECG RECORD MONITOR 30 DAYS 04/01/20 12:00:00 AM EDT MEDENT ([facility]) XTRNL PT ACTIVTD ECG DWNLD 30 DAYS PHYS R&I 04/01/2020 12:00:00 AM EDT MEDENT ([facility]) ECG ROUTINE ECG W/LEAST 12 LDS W/I&R 03/26/2020 12:00: 00 AM EDT MEDENT ([facility]) Tympanometry & Acoustic Reflex Threshold Testing 03/05 12:00:00 AM EDT [facility] ([facility] Electrocardiogram Complete 03/05/2020 12:00:00 AM EDT MED[facility] ([facility] Results ID Date Data Source [id number] 08/20/2020 02:54:00 PM EST MEDENT ([facility] Name Value Range Interpretation Code Description Data Makenzie rce(s) Supporting Document(s) Lipoprotein lipase [Enzymatic activity/volume] in Serum or Plasm a 35 U/L 13-78 [facility] ([facility] ) Erythrocyte sedimentation rate by Westergren method 2 mm/hr 0-15 MED[facility] ([facility] Amylase [Enzymatic activity/volume] in Serum or Plasma 75 U/L 31- 110 MED[facility] ([facility] ID Date Data Source [id number] 08/20/2020 02:54:00 PM EST MEDENT ([facility] Name Value Range Interpretation Code Description Data Makenzie rce(s) Supporting Document(s) Glucose [Mass/volume] in Serum or Plasma 103 mg/dL 65-99 Above high normal [facility] ([facility] BUN 10 mg/dL 6-20 MED[facility] ([facility] Creatinine [Mass/volume] in [...] Serum or Plasma 9.9 mg/dL 8.7-10.2 MED[facility] ([facility] Chloride [Moles/volume] in Serum or Plasma 102 mmol/L 96-106 MED[facility] ([facility] Carbon dioxide, total [Moles/volume] in Serum or Plasma 27 mmol/L 20 -29 MED[facility] ([facility] Globulin [Mass/volume] in Serum by calculation 2.3 g/dL 1.5-4.5 MED[facility] ([facility] Protein [Mass/volume] in Serum or Plasma 6.9 g/dL 6.0-8.5 MED[facility] ([facility] Albumin [Mass/volume] in Serum or Plasma 4.6 g/dL 4.1-5.2 MED[facility] ([facility] Albumin/Globulin [Mass Ratio] in Serum or Plasma 2.0 1.2-2.2 MED[facility] ([facility] Alkaline phosphatase [Enzymatic activity/volume] in Serum or Plasma 71 IU/L 39-117 [facility] Bilirubin.total [Mass/volume] in Serum or Plasma 0.9 mg/dL 0.0-1.2 MED[facility] ([facility] Aspartate aminotransferase [Enzymatic activity/volume] in Serum or Plasma 16 IU/L 0-40 [facility] Alanine aminotransferase [Enzymatic activity/volume] in Seru m or Plasma 12 IU/L 0-44 [facility] ([facility] ID Date Data Source [id number] 08/20/2020 02:54:00 PM EST MEDENT ([facility] Name Value Range Interpretation Code Description Data Makenzie rce(s) Supporting Document(s) Leukocytes [#/volume] in Blood by Automated count 7.1 x10E3/uL 3.4-10 .8 MEDENT ([facility] Hemoglobin [Mass/volume] in Blood 15.5 g/dL 13.0-17.7 MED[facility] ([facility] Erythrocytes [#/volume] in Blood by Automated count 4.85 x10E6/uL 4.1 4-5.80 [facility] ([facility] Erythrocyte mean corpuscular hemoglobin [Entitic mass] by Automated count 32.0 pg 26.6-33.0 [facility] Erythrocyte mean corpuscular volume [Entitic volume] by Auto mated count 92 fL 79-97 [facility] Hematocrit [Volume Fraction] [...] by Automated count 34.7 g/dL 31.5-35.7 [facility] ([facility] Neutrophils 72 % MED[facility] ([facility] Lymphs 19 % MEDENT [...] Automated count 0.1 x10E3/uL 0.0-0 .4 MEDENT ([facility] Basophils [#/volume] in Blood by Automated count 0.1 x10E3/uL 0.0-0.2 MED[facility] ([facility] Immature granulocytes [#/volume] in Blood by Automated count 0.0 x10E3/uL 0.0-0.1 [facility] Immature granulocytes/100 leukocytes in Blood by Automated count 0 % MEDENT ([facility] Nucleated erythrocytes/100 leukocytes [Ratio] in Blood by Automated count Laboratory test result MEDENT ([facility] Morphology [Interpretation] in Blood Narrative Laboratory test result MEDENT ([facility] ID Date Data Source [id number] 05/09/2020 01:43:00 PM EDT MEDENT ([facility] Name Value Range Interpretation Code Description Data Makenzie rce(s) Supporting Document(s) Thyrotropin [Units/volume] in Serum or Plasma 3.430 uIU/mL 0.450-4.50 0 MEDENT ([facility] ID Date Data Source [id number] 03/05/2020 01:08:00 PM EDT MEDENT ([facility] Name Value Range Interpretation Code Description Data Makenzie rce(s) Supporting Document(s) Thyrotropin [Units/volume] in Serum or Plasma 1.870 uIU/mL 0.450-4.50 0 MEDENT ([facility] ID Date Data Source [id number] 03/05/2020 01:08:00 PM EDT MEDENT ([facility] Name Value Range Interpretation Code Description Data Makenzie rce(s) Supporting Document(s) Glucose [Mass/volume] in Serum or Plasma 86 mg/dL 65-99 MEDENT ([facility] Creatinine [Mass/volume] in Serum or Plasma 1.02 mg/dL 0.76-1.27 [facility] ([facility] BUN 13 mg/dL 6-20 [facility] ([facility] eGFR If NonAfricn Am 100 [...] 14 IU/L 0-44 [facility] ([facility] Aspartate aminotransferase [Enzymatic activity/volume] in Serum or Plasma 14 IU/L 0-40 [facility] ([facility] Alkaline phosphatase [Enzymatic activity/volume] in Serum or Plasma 67 IU/L 39-117 [facility] ID Date Data Source [id number] 03/05/2020 01:08:00 PM EDT MEDENT ([facility] Name Value Range Interpretation Code Description Data Makenzie rce(s) Supporting Document(s) Leukocytes [#/volume] in Blood by Automated count 6.4 x10E3/uL 3.4-10 .8 [facility] ([facility] Hemoglobin [Mass/volume] in Blood 16.7 g/dL 13.0-17.7 [facility] ([facility] Erythrocytes [#/volume] in Blood by Automated count 5.36 x10E6/uL 4.1 4-5.80 [facility] ([facility] Erythrocyte mean corpuscular volume [Entitic volume] by Auto mated count 95 fL 79-97 [facility] ([facility] Hematocrit [Volume Fraction] of Blood by Automated count 51.1 % 37.5-51.0 Above high normal [facility] ([facility] ) Erythrocyte mean corpuscular hemoglobin [Entitic mass] by Automated count 31.2 pg 26.6-33.0 [facility] ([facility] Erythrocyte mean corpuscular hemoglobin concentration [Mass/volume] by Automated count 32.7 g/dL 31.5-35.7 [facility] ([facility] Erythrocyte distribution width [Ratio] by Automated count 12.2 % 11.6-15.4 [facility] ([facility] Neutrophils 63 % MED[facility] ([facility] Lymphs 24 % [facility] ([facility] Platelets [#/volume] in Blood [...] Automated count 0.2 x10E3/uL 0.0-0 .4 [facility] ([facility] Basophils [#/volume] in Blood by Automated count 0.0 x10E3/uL 0.0-0.2 [facility] ([facility] Monocytes [#/volume] in Blood 0.6 x10E3/uL 0.1-0.9 [facility] ([facility] Immature granulocytes [#/volume] in Blood by Automated count 0.0 x10E3/uL 0.0-0.1 MED[facility] ([facility] Nucleated erythrocytes/100 leukocytes [Ratio] in Blood by Automated count Laboratory test result MEDENT ([facility] Immature granulocytes/100 leukocytes in Blood by Automated count 0 % MED[facility] ([facility] Morphology [Interpretation] in Blood Narrative Laboratory test result MED[facility] ([facility] ID Date Data Source [id number] 01/31/2020 04:46:00 PM EDT MEDENT ([facility] Name Value Range Interpretation Code Description Data Makenzie rce(s) Supporting Document(s) Color Urine Laboratory test result M EDENT ([facility] Appearance of Urine Laboratory test result [facility] ([facility] Specific [place] 1.030 1.00-1.03 [facility] ([facility] PH Urine 6.5 5.0-8.0 [facility] Bilirubin.total [Presence] in Urine by Test strip Laboratory test res ult [facility] ([facility] Ketones Laboratory test result MEDENT ([facility] Glucose Urine Laboratory test result MEDENT ([facility] Blood Urine Laboratory test result M EDENT ([facility] Nitrite Laboratory test result MEDENT ([facility] Protein Urine Laboratory test result MEDENT ([facility] Urobilinogen 0.2 EU/dl 0.2-1.0 MEDENT ([facility] Leukocytes Laboratory test result ME DENT ([facility] ID Date Data Source [id number] 01/31/2020 04:46:00 PM EDT MEDENT ([facility]) Name Value Range Interpretation Code Description Data Makenzie rce(s) Supporting Document(s) Appearance of Urine Laboratory test result MEDENT ([facility]) Color Urine Laboratory test result MEDEN T ([facility]) Specific [place] 1.030 1.00-1.03 MEDENT ([facility]) PH Urine 6.5 5.0-8.0 [facility] Glucose Urine Laboratory test result MEDENT ([facility]) Protein Urine Laboratory test result MEDENT ([facility]) Bilirubin.total [Presence] in Urine by Test strip Laboratory test res ult MEDENT ([facility]) Blood Urine Laboratory test result MEDEN T ([facility]) Ketones Laboratory test result MEDENT ([facility]) Urobilinogen 0.2 EU/dl 0.2-1.0 MEDENT ([facility]) Leukocytes Laboratory test result MEDENT ([facility]) Nitrite Laboratory test result MEDENT ([facility]) ID Date Data Source [id number] 01/17/2020 04:11:00 PM EDT MEDENT ([facility] Name Value Range Interpretation Code Description Data Makenzie rce(s) Supporting Document(s) PH Urine 5.5 5.0-8.0 [facility] Color Urine Laboratory test result M EDENT ([facility] Specific [place] 1.030 1.00-1.03 MED[facility] ([facility] Appearance of Urine Laboratory test result MEDENT ([facility] Ketones Laboratory test result MEDENT ([facility] Glucose Urine Laboratory test result MEDENT ([facility] Bilirubin.total [Presence] in Urine by Test strip Laboratory test res ult MEDENT ([facility] Protein Urine Laboratory test result MED[facility] ([facility] Blood Urine Laboratory test result M EDENT ([facility] Urobilinogen 0.2 EU/dl 0.2-1.0 [facility] Leukocytes Laboratory test result ME DENT ([facility] Nitrite Laboratory test result Above high normal MEDENT ([facility] ID Date Data Source [id number] 01/17/2020 04:11:00 PM EDT [facility] Name Value Range Interpretation Code Description Data Makenzie rce(s) Supporting Document(s) Color Urine Laboratory test result MEDEN T ([facility]) PH Urine 5.5 5.0-8.0 [facility] Specific [place] 1.030 1.00-1.03 MEDENT ([facility]) Appearance of Urine Laboratory test result MEDENT ([facility]) Glucose Urine Laboratory test result MEDENT ([facility]) Ketones Laboratory test result MEDENT ([facility]) Blood Urine Laboratory test result MEDEN T ([facility]) Bilirubin.total [Presence] in Urine by Test strip Laboratory test res ult MEDENT ([facility]) Nitrite Laboratory test result MEDENT ([facility]) Protein Urine Laboratory test result MEDENT ([facility]) Urobilinogen 0.2 EU/dl 0.2-1.0 MED[facility] ([facility]) Leukocytes Laboratory test result MEDENT ([facility]) Procedure Social History Code Duration Value Status Description Data Source(s ) Smoking 05/01/2020 12:00:00 AM EDT Patient is a former smoker completed Patient is a former smoker [facility] ([facility] ) Smoking 03/26/2020 12:00:00 AM EDT Patient is a former smoker completed Patient is a former smoker [facility] ([facility]) Vital Signs ID Date Data Source [id number] Name Value Range Interpretation Code Description Data Source(s) Oxygen saturation in Arterial blood by Pulse oximetry 98 % 98 % [facility] ([facility] Body mass index (BMI) [Ratio] 22.3 kg/m2 22.3 k g/m2 [facility] ([facility] [place] body weight 154 [lb_av] 154 [lb_av] MEDEN T ([facility] Body weight 147.00 [lb_av] 147.00 [lb_av] MEDEN T ([facility] Body height 68 [in_i] 68 [in_i] MEDENT ([facility] 5'8" Respiratory rate 16 /min 16 /min [facility] ( [facility] Heart rate 76 /min 76 /min [facility] ([facility] Body [...] k g/m2 [facility] ([facility] [place] body weight 154 [lb_av] 154 [lb_av] MEDEN T ([facility] Body weight 148.00 [lb_av] 148.00 [lb_av] MEDEN T ([facility] Body height 68 [in_i] 68 [in_i] MED[facility] ([facility] 5'8" Respiratory rate 16 /min 16 /min [facility] ( [facility] Heart rate 68 /min 68 /min [facility] ([facility] Body temperature 98.7 [degF] 98.7 [degF] [facility] ([facility] Diastolic blood pressure 80 mm[Hg] 80 mm[Hg] [facility] ([facility] [facility] Systolic blood pressure 114 mm[Hg] 114 mm[Hg] M EDENT ([facility] Oxygen saturation in Arterial blood by Pulse oximetry 98 % 98 % MEDENT ([facility] Body mass index (BMI) [Ratio] 22.3 kg/m2 22.3 k g/m2 MEDENT ([facility] [place] body weight 154 [lb_av] 154 [lb_av] MEDEN T ([facility] Body weight 147.00 [lb_av] 147.00 [lb_av] MEDEN T ([facility] Body height 68 [in_i] 68 [in_i] MEDENT ([facility] 5'8" Respiratory rate 16 /min 16 /min MEDENT ( [facility] Heart rate 66 /min 66 /min MEDENT ([facility] Body temperature 98.6 [degF] 98.6 [degF] MEDENT ([facility] Diastolic blood pressure 78 mm[Hg] 78 mm[Hg] MEDENT ([facility] Systolic blood pressure 112 mm[Hg] 112 mm[Hg] M EDENT ([facility] Oxygen saturation in Arterial blood by Pulse oximetry 98 % 98 % MEDENT ([facility] Body mass index (BMI) [Ratio] 22.8 kg/m2 22.8 k g/m2 MEDENT ([facility] [place] body weight 154 [lb_av] 154 [lb_av] MEDEN T ([facility] Body weight 150.00 [lb_av] 150.00 [lb_av] MEDEN T ([facility] Body height 68 [in_i] 68 [in_i] [facility]ENT ([facility] 5'8" Respiratory rate 54 /min 54 /min MEDENT ( [facility] Heart rate 5 /min 5 /min MEDENT ([facility] Body temperature 97.0 [degF] 97.0 [degF] MEDENT ([facility] Diastolic blood pressure 68 mm[Hg] 68 mm[Hg] MEDENT ([facility] Systolic blood pressure 128 mm[Hg] 128 mm[Hg] M EDENT ([facility] Oxygen saturation in Arterial blood by Pulse oximetry 98 % 98 % MEDENT ([facility] Body mass index (BMI) [Ratio] 22.7 kg/m2 22.7 k g/m2 MEDENT ([facility] [place] body weight 154 [lb_av] 154 [lb_av] MEDEN T ([facility] Body weight 149.00 [lb_av] 149.00 [lb_av] MEDEN T ([facility] Body height 68 [in_i] 68 [in_i] MEDENT ([facility] 5'8" Respiratory rate 16 /min 16 /min MEDENT ( [facility] Heart rate 94 /min 94 /min MEDENT ([facility] Body temperature 97.6 [degF] 97.6 [degF] MEDENT ([facility] Diastolic blood pressure 72 mm[Hg] 72 mm[Hg] MEDENT ([facility] Systolic blood pressure 116 mm[Hg] 116 mm[Hg] M EDENT ([facility] Body mass index (BMI) [Ratio] 23.5 kg/m2 23.5 k g/m2 MEDENT ([facility], ) Body weight 150.00 [lb_av] 150.00 [lb_av] MEDEN T ([facility], ) Body height 67 [in_i] 67 [in_i] MEDENT ([facility] 5'7" Respiratory rate 12 /min 12 /min MEDENT ( [facility], ) Diastolic blood pressure--sitting 53 mm[Hg] 53 mm[Hg] MEDENT ([facility]) [place], adult cuff/Ra Systolic blood pressure--sitting 111 mm[Hg] 111 mm[Hg] MEDENT ([facility]) [place], adult cuff/Ra Heart rate 51 /min 51 /min MEDENT ([facility]) Body mass index (BMI) [Ratio] 22.0 kg/m2 22.0 k g/m2 MEDENT ([facility]) Body height 69 [in_i] 69 [in_i] MEDENT ([facility]) 5'9" Body weight 149.00 [lb_av] 149.00 [lb_av] MEDEN T ([facility]) Oxygen saturation in Arterial blood by Pulse oximetry 97 % 97 % MEDENT ([facility] Body mass index (BMI) [Ratio] 22.5 kg/m2 22.5 k g/m2 MEDENT ([facility] Body weight 148.00 [lb_av] 148.00 [lb_av] MEDEN T ([facility] Body height 68 [in_i] 68 [in_i] MEDENT ([facility] 5'8" Respiratory rate [...] height 68 [in_i] 68 [in_i] MEDENT ([facility] 5'8" Respiratory rate 16 [...] Body height 68 [in_i] 68 [in_i] MEDENT ([facility] 5'8" Respiratory rate [...] Heart rate 72 /min 72 /min MEDENT ([facility] Body temperature 98.2 [degF] 98.2 [degF] MEDENT ([facility] Diastolic blood pressure 60 mm[Hg] 60 mm[Hg] MEDENT ([facility] Systolic blood pressure 98 mm[Hg] 98 mm[Hg] M EDENT ([facility] Diastolic blood pressure 66 mm[Hg] 66 mm[Hg] eCW1 ([facility]) Systolic blood pressure 130 mm[Hg] 130 mm[Hg] e CW1 ([facility]) Body temperature 98.2 [degF] 98.2 [degF] eCW1 ( [facility]) Respiratory rate 18 /min 18 /min eCW1 ([facility]) Heart rate 68 /min 68 /min eCW1 ([facility]) Body mass index (BMI) [Ratio] 22.96 kg/m2 22.96 kg/m2 eCW1 ([facility]) Body height [in_us] eCW1 ([facility]) Body weight Measured 151 [lb_av] 151 [lb_av] eC W1 ([facility]) Patient Treatment Plan of Care Planned Activity Planned Date Details Description Data Source (s) Ciprofloxacin 500 MG Oral Tablet [Cipro] 01/16/2020 12:00:00 AM EDT eCW1 ([facility])
[2020-09-29 07:42] LABS: BASO # 0.1 10^3/uL (0.0-0.2); BASO % 0.4 % (0.0-1.0); EOS # 0.2 10^3/uL (0.0-0.5); EOS % 1.4 % (0.0-3.0); HEMATOCRIT 48.1 % (42.0-52.0); HEMOGLOBIN 16.1 g/dl (13.5-17.5); LYMPH # 1.7 10^3/uL (1.5-5.0); LYMPH % 12.5 % (24.0-44.0); MEAN CORPUSCULAR HEMOGLOBIN 31.3 pg (27.0-33.0); MEAN CORPUSCULAR HGB CONC 33.5 g/dl (32.0-36.5); MEAN CORPUSCULAR VOLUME 93.6 fl (80.0-96.0); MONO # 1.1 10^3/uL (0.0-0.8); MONO % 8.3 % (0.0-5.0); NEUTROPHILS # 10.2 10^3/uL (1.5-8.5); NEUTROPHILS % 77.1 % (36.0-66.0); PLATELET COUNT, AUTOMATED 214 10^3/uL (150-450); RED BLOOD COUNT 5.14 10^6/uL (4.30-6.10); WHITE BLOOD COUNT 13.2 10^3/uL (4.0-10.0)
[2020-09-29] MEDS ORDERED: LEVO750T13 PO (09:25)
[2020-09-29] MEDS ORDERED: LevoFLOXacin 750 MG TABLET PO ONE (09:30)
[2020-09-29 09:40] VITALS: BP 113/59
[2020-09-29 11:13] LABS: CHLAMYDIA DNA AMPLIFICATION NEGATIVE (NEGATIVE); GC DNA AMPLIFICATION NEGATIVE (NEGATIVE)
== END 2020-09-29 09:50 | disposition home or self-care (01) ==
LOC: M ED 05:50
DX: N39.0 Urinary tract infection, site not specified (principal)